=== PATIENT | female | born 1955 | race African-American/Black ===

== ENCOUNTER 2022-04-17 10:14 | Emergency (ER) | payer OTHER ==
--- OUTSIDE RECORDS SUMMARY | 2022-04-17 10:22 | XMS REPORT | Continuity of Care Document ---
:1955 Author Organization [facility] [place] t Address [address] [place] [address] Care Team Providers Name Role Phone VAL LEWIS Primary Care Physician Unavailable Yazmin Cates RN Attending Clinician Unavailable JE GUERRERO Attending Clinician Unavailable Derek Michaels DO Attending Clinician Rui Torre MD Attending Clinician Je Guerrero MD Attending Clinician Doctor Unassigned, [place] Attending Clinician Unavailable TIN MCCLAIN Attending Clinician Unavailable Tin Zendejas Attending Clinician Broderick Perez MD Attending Clinician BRODERICK PEREZ Attending Clinician Unavailable Megan Hyde NP Attending Clinician Nu More Attending Clinician Unknown, Attending Attending Clinician Unavailable UNKNOWN, ATTENDING Attending Clinician Unavailable JE GUERRERO Admitting Clinician Unavailable Je Guerrero MD Admitting Clinician BRODERICK PEREZ Admitting Clinician Unavailable Payers Payer Name Policy Type Policy Number Effective Date Expiration Date George nath [employer] MEDICARE ADV [id number] 2016 00:00:00 Problems Condition Condition Condition Status Onset Resolution Last Treating Co mments Source Name Details Category Date Date Treatment Clinician Date Essential Essential Disease Active Uni vers hypertensi hypertensi 6-23 it y of on on 00:: [place] [facility] Dyslipidem Dyslipidem Disease Active U nivers ia ia 6-23 ity of 00:00: [place] [facility] Elevated Elevated Disease Active Unive rs brain brain 6- ity of nat[place] c peptide c peptide 00 [facility] (BNP) (BNP) Branch level level DORADO DORADO Disease Active Univers (dyspnea (dyspnea 11-20 ity of on on 00:00: [place] exertion) exertion) 00 [facility] Branch Hypotensio Hypotensio Disease Active U nivers n, n, 6- ity of unspecifie unspecifie 00:00: [place] d d 00 Medical hypotensio hypotensio Br anch n type n type Symptomati Symptomati Disease Active U nivers c c 6-22 ity of bradycardi bradycardi 00:[place]: [place] a a 00 [facility] [place] Obesity Obesity Disease Active Univers (BMI (BMI 7-02 ity of 30-39.9) 30-39.9) 00:00: [place] [facility] Branch Right hand Right hand Disease Active U nivers pain pain 3-08 ity of 00:00: [address] Allergies, Adverse Reactions, Alerts Allergy Allergy Status Severity Reaction(s) Onset Inactive Treating Comm ents Source Name Type Date Date Clinician NO KNOWN Drug Active Univers ALLERGIE Class ity of [facility] Social History Social Habit Start Date Stop Date Quantity Comments Source History of tobacco Smoker [facility] use [facility] Exposure to 2021-11-10 2021-11-20 Not sure [facility] SARS-CoV-2 (event) 00:00:00 02:02:00 Medica l Branch Alcohol intake 2021-11-19 2021-11-19 0 /d [facility] 00:00:00 00:00:00 Medical Branch Tobacco use and 2018-09-16 2018-09-16 Never used [facility] [place] exposure 00:00:00 00:00:00 Medical Branch Sex [birth year] [facility] y [facility] 00:00:00 00:00:00 Medical Branch Smoking Status Start Date Stop Date Source Former smoker 2018-09-16 00:00:00 2018-09-16 00:00:00 [facility] Medical Branch Medications Ordered Filled Start Stop Current Ordering Indication Dosage Frequency Signature Comments Components Source Medication Medication Date Date Medication? Clinician (SIG) Name Name ATORVASTATI No N CALCIUM 9-08 10MG TAB 00:00: 00 TAKE 1 No TABLET BY 9-08 MOUTH ONCE 00:00: DAILY 00 BABY Yes Take 1 Univers ASPIRIN 6-24 TAB-CAP/M2 ity of ORAL 11:47: by mouth [place] 20 daily. Medical Branch atorvastati Yes 10mg Take 10 mg Univers n (LIPITOR) 6-24 by mouth ity of 10 mg 11:47: every [place] tablet 20 morning. Medical Branch BABY Yes Take 1 Univers ASPIRIN 6-24 TAB-CAP/M2 ity of ORAL 11:47: by mouth [place] 20 daily. Medical Branch atorvastati Yes 10mg Take 10 mg Univers n (LIPITOR) 6-24 by mouth ity of 10 mg 11:47: every [place] tablet 20 morning. Medical Branch hydroCHLORO 2021- No 12.5mg Take 12.5 Univers thiazide 6-24 06-24 mg by ity of 12.5 mg 10:38: 00:00 mouth [place] capsule 38 :00 daily. Medical Branch clopidogreL Yes 75mg 75 mg, Univ ers (PLAVIX) 75 6-23 Oral, ity of mg tablet 14:00: DAILY, [place] 75 mg 00 First dose Medical on [facility] 11/20/21 at 0900, Until Discontinu ed, Routine aspirin EC Yes 81mg 81 mg, Unive rs tablet 81 6-23 Oral, ity of mg 14:00: DAILY, [place] 00 First dose Medical on [facility] 11/20/21 at 0900, Until Discontinu ed atorvastati Yes 10mg 10 mg, Univ ers n (LIPITOR) 11-20 Oral, QAM, it y of tablet 10 14:00: [place] dose [place] mg 00 on [facility] Medical 11/20/21 at Branch 0900, Until Discontinu ed, Routine KCL 2021-2021- No 40meq 40 mEq, Univers (KLOR-CON 11-20 Oral, ity of M20) tablet 13:45: 13:27 ONCE, 1 [place] 40 mEq 00 :00 dose, On Medical [facility] 11/20/21 at 0845, Routine potassium 2021- No 10meq 10 mEq, IV Univers chloride in 11-20 Piggyback, i ty of water 10 13:00: 16:00 Q1H, 2 [place] mEq/100 mL 00 :00 doses, Medical RTU 10 mEq First dose Bra nch on [facility] 11/20/21 at 0800, Last dose on [facility] 11/20/21 at 0900, Administer over 60 Minutes, 100 mL Sliding 2021- Yes Subcutaneo Univ ers Scale 11-19 us, TID ity of Insulin - 22:00: MEALS+HS, [place] as Lispro 00 First dose Medical (HumaLOG) + on Wed [facility] 11/19/21 at Testing 1700, Until Discontinu ed, Routine enoxaparin Yes 40mg 40 mg, Unive rs (LOVENOX) 11-19 Subcutaneo ity of injection 22:00: [place], DAILY, [place] 40 mg 00 First dose Medical on Wed [facility] 11/19/21 at 1700, Until Discontinu ed, Routine glucagon Yes 1mg 1 mg, Univers (GLUCAGEN 11-19 Intramuscu ity of DIAGNOSTIC 21:00: lar, PRN, [place] KIT) 23 Starting Medical injection 1 on Wed [facility] mg 11/19/21 at 1600, Until Discontinu ed, WADE, Blood Glucose < or = 70 mg/dL and patient is unable to swallow or has mental changes. ondansetron 0 Yes 4mg 4 mg, Slow Univers (ZOFRAN 11-19 IV Push, ity of (PF)) 21:00: Q6HPRN, [place] injection 4 08 Starting Medi davis mg on Wed Branch 11/19/21 at 1600, Until Discontinu ed, Routine, Nausea and Vomiting (N/V) acetaminoph Yes 650mg 650 mg, Un adrian en 11-19 Oral, ity of (TYLENOL) 21:00: Q6HPRN, [place] tablet 650 00 Starting Medic al mg on Wed11/19/21 at 1600, Until Discontinu ed, Routine, Pain (scale 1-3) cefTRIAXone 2021- No 1000mg 1,000 mg, Univers (ROCEPHIN) 11-1923 Slow IV ity o f injection 17:45: 20:01 Push, Q24H [place] 1,000 mg 00 :25 ABX, First Medic al dose on Branch Wed11/19/21 at 1245, Until Discontinu ed, WADE<br&gt ;Reason for Anti-Infec tive: Empiric Therapy for Suspected Infection< br>Empiric Therapy Site: Urine
D uration of therapy: 72 hours NaCl 0.9% 2021- No 30mL/kg at 999 Un adrian (NS) bolus 11-19 mL/hr, ity of infusion 17:45: 20:00 2,313 [place] 2,313 mL 00 :00 (30 mL/kg Medica l ?77.1 kg), Branch IV Piggyback, ONCE, 1 dose, On Wed11/19/21 at 1245, STAT atorvastati 0 No 1mg n 10 mg 10-29 tablet 00:00: 00 Plavix 75 2021-0 No 1mg mg tablet 10-29 00:00: 00 losartan 2021-0 No 1mg 100 mg 10-29 tablet 00:00: 00 amlodipine 0 No 1mg 5 mg tablet 10-29 00:00: 00 Flonase 0 No 1mcg/ac Allergy 10-29 tuation Relief 50 00:00: mcg/actuati 00 on nasal spray,suspe nsion Dose 0 No Unknown 5-31 00:00: 00 Dose 2021-0 No Unknown 5-24 00:00: 00 Dose 2021-0 No Unknown 5-20 00:00: 00 Dose 2021-0 No Unknown 5-16 00:00: 00 Dose 2021-0 No Unknown 5-16 00:00: 00 atorvastati 2021-0 No 1mg n 10 mg 2-03 tablet 00:00: 00 amlodipine 2020-1 No 1mg 5 mg tablet 0-27 00:00: 00 Plavix 75 2020-1 No 1mg mg tablet 0-27 00:00: 00 losartan 2020-1 No 1mg 100 mg 0-18 tablet 00:00: 00 amlodipine 2020-1 No 1mg 5 mg tablet 0-18 00:00: 00 Plavix 75 2020-1 No 1mg mg tablet 0-18 00:00: 00 Flonase 2020-1 No 1mcg/ac Allergy 0-18 tuation Relief 50 00:00: mcg/actuati 00 on nasal spray,suspe nsion losartan 2020-0 No 1mg 100 mg 9-30 tablet 00:00: 00 amlodipine 2020-0 No 1mg 5 mg tablet 9-16 00:00: 00 Plavix 75 2020-0 No 1mg mg tablet 9-13 00:00: 00 latanoprost 2020-0 No 1% 0.005 % eye 6-30 drops 00:00: 00 hydrochloro 2020-0 No 1mg thiazide 6-30 12.5 mg 00:00: tablet 00 atenolol 25 2020-0 No 1mg mg tablet 6-30 00:00: 00 atorvastati 2020-0 No 1mg n 10 mg 6-30 tablet 00:00: 00 atorvastati 2020-0 No 1mg n 10 mg 4-22 tablet 00:00: 00 amlodipine 2020-0 No 1mg 5 mg tablet 2-18 00:00: 00 Plavix 75 2020-0 No 1mg mg tablet 2-18 00:00: 00 losartan 2020-0 No 1mg 100 mg 2-18 tablet 00:00: 00 famotidine 2020-0 No 1mg 20 mg 2-18 tablet 00:00: 00 acetaminoph 2020-0 1- No 650mg 650 mg, U nivers en 07-11 Oral, ity of (TYLENOL) 21:30: 20:21 ONCE, 1 [place] tablet 650 00 :00 dose, [place] Medi davis mg 07/11/20 at Branch 1530, WADE etodolac Yes [id number] 200mg Take 1 Univers 200 mg 2-11 [id number] capsule by ity o f capsule 00:00: mouth [place] 00 every 8 Medical (eight) Branch hours as needed for Pain. etodolac Yes [id number] 200mg Take 1 Univers 200 mg 2-11 [id number] capsule by ity o f capsule 00:00: mouth [place] 00 every 8 Medical (eight) Branch hours as needed for Pain. etodolac Yes [id number] 200mg Take 1 Univers 200 mg 2-11 [id number] capsule by ity o f capsule 00:00: mouth [place] 00 every 8 Medical (eight) Branch hours as needed for Pain. etodolac Yes [id number] 200mg Take 1 Univers 200 mg 2-11 [id number] capsule by ity o f capsule 00:00: mouth [place] 00 every 8 Medical (eight) Branch hours as needed for Pain. etodolac Yes [id number] 200mg Take 1 Univers 200 mg 2-11 [id number] capsule by ity o f capsule 00:00: mouth [place] 00 every 8 Medical (eight) Branch hours as needed for Pain. etodolac Yes [id number] 200mg Take 1 Univers 200 mg 2-11 [id number] capsule by ity o f capsule 00:00: mouth [place] 00 every 8 Medical (eight) Branch hours as needed for Pain. etodolac Yes [id number] 200mg Take 1 Univers 200 mg 2-11 [id number] capsule by ity o f capsule 00:00: mouth [place] 00 every 8 Medical (eight) Branch hours as needed for Pain. etodolac Yes [id number] 200mg Take 1 Univers 200 mg 2-11 [id number] capsule by ity o f capsule 00:00: mouth [place] 00 every 8 Medical (eight) Branch hours as needed for Pain. etodolac Yes [id number] 200mg Take 1 Univers 200 mg 2-11 [id number] capsule by ity o f capsule 00:00: mouth [place] 00 every 8 Medical (eight) Branch hours as needed for Pain. etodolac Yes [id number] 200mg Take 1 Univers 200 mg 2-11 [id number] capsule by ity o f capsule 00:00: mouth [place] 00 every 8 Medical (eight) Branch hours as needed for Pain. etodolac Yes [id number] 200mg Take 1 Univers 200 mg 2-11 [id number] capsule by ity o f capsule 00:00: mouth [place] 00 every 8 Medical (eight) Branch hours as needed for Pain. etodolac Yes [id number] 200mg Take 1 Univers 200 mg 2-11 [id number] capsule by ity o f capsule 00:00: mouth [place] 00 every 8 Medical (eight) Branch hours as needed for Pain. etodolac Yes [id number] 200mg Take 1 Univers 200 mg 2-11 [id number] capsule by ity o f capsule 00:00: mouth [place] 00 every 8 Medical (eight) Branch hours as needed for Pain. etodolac Yes [id number] 200mg Take 1 Univers 200 mg 2-11 [id number] capsule by ity o f capsule 00:00: mouth [place] 00 every 8 Medical (eight) Branch hours as needed for Pain. etodolac Yes [id number] 200mg Take 1 Univers 200 mg 2-11 [id number] capsule by ity o f capsule 00:00: mouth [place] 00 every 8 Medical (eight) Branch hours as needed for Pain. etodolac Yes [id number] 200mg Take 1 Univers 200 mg 2-11 [id number] capsule by ity o f capsule 00:00: mouth [place] 00 every 8 Medical (eight) Branch hours as needed for Pain. etodolac 2021- No [id number] 200mg Take 1 Univers 200 mg 2-11 -24 [id number] capsule by ity of capsule 00:00: 00:00 mouth [place] 00 :00 every 8 Medical (eight) Branch hours as needed for Pain. losartan No 1mg 100 mg 2-03 tablet 00:00: 00 meloxicam 2019-05 No 1mg 15 mg 2-23 tablet 00:00: 00 Plavix 75 2019-05 No 1mg mg tablet 2-23 00:00: 00 amlodipine 2019-05 No 1mg 5 mg tablet 2-23 00:00: 00 losartan 2019-05 No 1mg 100 mg 1-10 tablet 00:00: 00 meloxicam 2019-05 No 1mg 15 mg 1-10 tablet 00:00: 00 amlodipine 2020-1 No 1mg 5 mg tablet 1-10 00:00: 00 famotidine 2020-1 No 1mg 20 mg 1-10 tablet 00:00: 00 Plavix 75 2020-1 No 1mg mg tablet 0-09 00:00: 00 meloxicam 2020-0 No 1mg 15 mg 9-29 tablet 00:00: 00 famotidine 2020-0 No 1mg 20 mg 9-29 tablet 00:00: 00 acetaminoph 2020-0 2020- No 650mg 650 mg, U nivers en 02-24 Oral, ity of (TYLENOL) 00:15: 00:17 ONCE, 1 [place] tablet 650 00 :00 dose, Sat Medi dav[place] mg 02/24/20 at Branch 1915, WADE atorvastati 2020-0 No 1mg n 10 mg 6-16 tablet 00:00: 00 amlodipine 2020-0 No 1mg 5 mg tablet 6-16 00:00: 00 losartan 2020-0 No 1mg 100 mg 6-15 tablet 00:00: 00 Plavix 75 2020-0 No 1mg mg tablet 6-15 00:00: 00 atorvastati 2020-0 No 1mg n 10 mg 6-15 tablet 00:00: 00 amlodipine 2020-0 No 1mg 5 mg tablet 6-15 00:00: 00 atenolol 50 2020-0 No 1mg mg tablet 6-15 00:00: 00 Vitamin D3 2020-0 No 1(5,000 125 mcg 6-15 unit) (5,000 00:00: unit) 00 tablet losartan 2020-0 No 1mg 100 mg 6-04 tablet 00:00: 00 amlodipine 2020-0 No 1mg 5 mg tablet 4-15 00:00: 00 aspirin 81 2020-0 No 1mg mg 4-15 tablet,samson 00:00: yed release 00 atenolol 50 2020-0 No 1mg mg tablet 4-15 00:00: 00 atorvastati 2020-0 No 1mg n 10 mg 4-15 tablet 00:00: 00 losartan 2020-0 No 1mg 100 mg 4-15 tablet 00:00: 00 Plavix 75 2020-0 No 1mg mg tablet 4-15 00:00: 00 Vitamin D3 2020-0 No 1(5,000 125 mcg 4-15 unit) (5,000 00:00: unit) 00 tablet BABY 2019-0 Yes Take 1 Univers ASPIRIN 4-19 TAB-CAP/M2 ity of ORAL 18:15: by mouth [place] 52 daily. Medical Branch BABY 2019-0 Yes Take 1 Univers ASPIRIN 4-19 TAB-CAP/M2 ity of ORAL 18:15: by mouth [place] 52 daily. Medical Branch BABY 2019-0 Yes Take 1 Univers ASPIRIN 4-19 TAB-CAP/M2 ity of ORAL 18:15: by mouth [place] 52 daily. Medical Branch BABY 2019-0 Yes Take 1 Univers ASPIRIN 4-19 TAB-CAP/M2 ity of ORAL 18:15: by mouth [place] 52 daily. Medical Branch BABY 2019-0 Yes Take 1 Univers ASPIRIN 4-19 TAB-CAP/M2 ity of ORAL 18:15: by mouth [place] 52 daily. Medical Branch BABY 2019-0 Yes Take 1 Univers ASPIRIN 4-19 TAB-CAP/M2 ity of ORAL 18:15: by mouth [place] 52 daily. Medical Branch BABY 2019-0 Yes Take 1 Univers ASPIRIN 4-19 TAB-CAP/M2 ity of ORAL 18:15: by mouth [place] 52 daily. Medical Branch BABY 2019-0 Yes Take 1 Univers ASPIRIN 4-19 TAB-CAP/M2 ity of ORAL 18:15: by mouth [place] 52 daily. Medical Branch BABY 2019-0 Yes Take 1 Univers ASPIRIN 4-19 TAB-CAP/M2 ity of ORAL 18:15: by mouth [place] 52 daily. Medical Branch BABY 2019-0 Yes Take 1 Univers ASPIRIN 4-19 TAB-CAP/M2 ity of ORAL 18:15: by mouth [place] 52 daily. Medical Branch BABY 2019-0 Yes Take 1 Univers ASPIRIN 4-19 TAB-CAP/M2 ity of ORAL 18:15: by mouth [place] 52 daily. Medical Branch BABY 2019-0 Yes Take 1 Univers ASPIRIN 4-19 TAB-CAP/M2 ity of ORAL 18:15: by mouth [place] 52 daily. Medical Branch BABY 2019-0 Yes Take 1 Univers ASPIRIN 4-19 TAB-CAP/M2 ity of ORAL 18:15: by mouth [place] 52 daily. Medical Branch BABY 2019-0 Yes Take 1 Univers ASPIRIN 4-19 TAB-CAP/M2 ity of ORAL 18:15: by mouth [place] 52 daily. Medical Branch BABY 2019-0 Yes Take 1 Univers ASPIRIN 4-19 TAB-CAP/M2 ity of ORAL 18:15: by mouth [place] 52 daily. Medical Branch BABY 2019-0 Yes Take 1 Univers ASPIRIN 4-19 TAB-CAP/M2 ity of ORAL 18:15: by mouth [place] 52 daily. Medical Branch BABY 2019-0 Yes Take 1 Univers ASPIRIN 4-19 TAB-CAP/M2 ity of ORAL 18:15: by mouth [place] 52 daily. Medical Branch BABY 2019-0 Yes Take 1 Univers ASPIRIN 4-19 TAB-CAP/M2 ity of ORAL 18:15: by mouth [place] 52 daily. Medical Branch BABY [id number] Yes Take 1 Univers ASPIRIN 4-19 TAB-CAP/M2 ity of ORAL 18:15: by mouth [place] 52 daily. Medical Branch BABY 2019 Yes Take 1 Univers ASPIRIN 4-19 TAB-CAP/M2 ity of ORAL 18:15: by mouth [place] 52 daily. Medical Branch BABY Yes Take 1 Univers ASPIRIN 4-19 TAB-CAP/M2 ity of ORAL 18:15: by mouth [place] 52 daily. Medical Branch BABY 2019 Yes Take 1 Univers ASPIRIN 4-19 TAB-CAP/M2 ity of ORAL 18:15: by mouth [place] 52 daily. Medical Branch BABY [id number] Yes Take 1 Univers ASPIRIN 4-19 TAB-CAP/M2 ity of ORAL 13:15: by mouth [place] 52 daily. Medical Branch clopidogrel 2019-0 Yes Univer s 75 mg 4-01 ity of tablet 00:00: [facility] Branch clopidogrel 2019-0 Yes Univer s 75 mg 4-01 ity of tablet 00:00: [address] Branch clopidogrel 2019-0 Yes Univer s 75 mg 4-01 ity of tablet 00:00: [place] [facility] clopidogrel 2019-0 Yes Univer s 75 mg 4-01 ity of tablet 00:00: [place] [facility] clopidogrel 2019-0 Yes Univer s 75 mg 4-01 ity of tablet 00:00: [place] [facility] Branch clopidogrel 2019-0 Yes Univer s 75 mg 4-01 ity of tablet 00:00: Medical Branch clopidogrel 2019-0 Yes Univer s 75 mg 4-01 ity of tablet 00:00: [facility] clopidogrel 2019-0 Yes Univer s 75 mg 4-01 ity of tablet 00:00: [place] [facility] clopidogrel 2019-0 Yes Univer s 75 mg 4-01 ity of tablet 00:00: [place] 00 Medical Branch clopidogrel 2019-0 Yes Univer s 75 mg 4-01 ity of tablet 00:00: [place] [address] Medical Branch clopidogrel 2019-0 Yes Univer s 75 mg 4-01 ity of tablet 00:00: [place] [facility] clopidogrel 2019-0 Yes Univer s 75 mg 4-01 ity of tablet 00:00: [place] [address] Medical Branch clopidogrel 2019-0 Yes Univer s 75 mg 4-01 ity of tablet 00:00: [place] [address] Medical Branch clopidogrel 2019-0 Yes Univer s 75 mg 4-01 ity of tablet 00:00: [place] [address] Medical Branch clopidogrel 2019-0 Yes Univer s 75 mg 4-01 ity of tablet 00:00: [place] [address] Medical Branch clopidogrel 2019-0 Yes Univer s 75 mg 4-01 ity of tablet 00:00: [place] [address] Medical Branch clopidogrel 2019-0 Yes Univer s 75 mg 4-01 ity of tablet 00:00: [place] [address] Medical Branch clopidogrel 2019-0 Yes Univer s 75 mg 4-01 ity of tablet 00:00: [place] [address] Medical Branch clopidogrel 2019-0 Yes Univer s 75 mg 4-01 ity of tablet 00:00: [place] [address] Medical Branch clopidogrel 2019-0 Yes Univer s 75 mg 4-01 ity of tablet 00:00: [place] [address] Medical Branch clopidogrel 2019-0 Yes Univer s 75 mg 4-01 ity of tablet 00:00: [place] [address] Medical Branch clopidogrel 2019-0 Yes Univer s 75 mg 4-01 ity of tablet 00:00: [place] [address] Medical Branch clopidogrel 2019-0 Yes Univer s 75 mg 4-01 ity of tablet 00:00: [place] [address] Medical Branch clopidogrel 2019-0 Yes Univer s 75 mg 4-01 ity of tablet 00:00: [place] [address] Medical Branch clopidogrel 2019-0 Yes Univer s 75 mg 4-01 ity of tablet 00:00: [place] [address] Medical Branch meloxicam 2019-0 Yes Univers 15 mg 3-21 ity of tablet 00:00: [place] [address] Medical Branch meloxicam 2019-0 Yes Univers 15 mg 3-21 ity of tablet 00:00: [place] [address] Medical Branch meloxicam 2019-0 Yes Univers 15 mg 3-21 ity of tablet 00:00: [place] [address] Medical Branch meloxicam 2019-0 Yes Univers 15 mg 3-21 ity of tablet 00:00: [place] [address] Medical Branch meloxicam 2019-0 Yes Univers 15 mg 3-21 ity of tablet 00:00: [place] [facility] meloxicam 2019-0 Yes Univers 15 mg 3-21 ity of tablet 00:00: [place] [facility] meloxicam 2019-0 Yes Univers 15 mg 3-21 ity of tablet 00:00: [place] [address] Medical Branch meloxicam 2019-0 Yes Univers 15 mg 3-21 ity of tablet 00:00: [place] [facility] meloxicam 2019-0 Yes Univers 15 mg 3-21 ity of tablet 00:00: [place] [facility] meloxicam 2019-0 Yes Univers 15 mg 3-21 ity of tablet 00:00: [place] [address] Medical Branch meloxicam 2019-0 Yes Univers 15 mg 3-21 ity of tablet 00:00: [place] [facility] meloxicam 2019-0 Yes Univers 15 mg 3-21 ity of tablet 00:00: [place] [address] Medical Branch meloxicam 2019-0 Yes Univers 15 mg 3-21 ity of tablet 00:00: [place] [address] Medical Branch meloxicam 2019-0 Yes Univers 15 mg 3-21 ity of tablet 00:00: [place] [facility] meloxicam 2019-0 Yes Univers 15 mg 3-21 ity of tablet 00:00: [place] [address] Medical Branch meloxicam 2019-0 Yes Univers 15 mg 3-21 ity of tablet 00:00: [place] [facility] meloxicam 2019-0 Yes Univers 15 mg 3-21 ity of tablet 00:00: [place] [address] Medical Branch meloxicam 2019-0 Yes Univers 15 mg 3-21 ity of tablet 00:00: [place] [facility] meloxicam 2019-0 Yes Univers 15 mg 3-21 ity of tablet 00:00: [place] [facility] meloxicam 2019-0 Yes Univers 15 mg 3-21 ity of tablet 00:00: [place] [address] Medical Branch meloxicam 2019-0 Yes Univers 15 mg 3-21 ity of tablet 00:00: [place] [facility] meloxicam 2019-0 Yes Univers 15 mg 3-21 ity of tablet 00:00: [place] [address] Medical Branch meloxicam 2019-0 Yes Univers 15 mg 3-21 ity of tablet 00:00: [place] [address] Medical Branch meloxicam 2019-0 2021- No Univers 15 mg 3-21 06-24 ity of tablet 00:00: 00:00 [place] 00 :00 Medical Branch traMADOL 50 2018-0 Yes Univer s mg tablet 3-27 ity of 00:00: [place] 00 Medical Branch traMADOL 50 2018-0 Yes Univer s mg tablet 3-27 ity of 00:00: [place] 00 Medical Branch traMADOL 50 2018-0 Yes Univer s mg tablet 3-27 ity of 00:00: [place] 00 Medical Branch traMADOL 50 2018-0 Yes Univer s mg tablet 3-27 ity of 00:00: [place] 00 Medical Branch traMADOL 50 2018-0 Yes Univer s mg tablet 3-27 ity of 00:00: [place] 00 Medical Branch traMADOL 50 2018-0 Yes Univer s mg tablet 3-27 ity of 00:00: [place] 00 Medical Branch traMADOL 50 2018-0 Yes Univer s mg tablet 3-27 ity of 00:00: [place] 00 Medical Branch traMADOL 50 2018-0 Yes Univer s mg tablet 3-27 ity of 00:00: [place] 00 Medical Branch traMADOL 50 2018-0 Yes Univer s mg tablet 3-27 ity of 00:00: [place] 00 Medical Branch traMADOL 50 2018-0 Yes Univer s mg tablet 3-27 ity of 00:00: [place] 00 Medical Branch traMADOL 50 2018-0 Yes Univer s mg tablet 3-27 ity of 00:00: [place] 00 Medical Branch traMADOL 50 2018-0 Yes Univer s mg tablet 3-27 ity of 00:00: [place] 00 Medical Branch traMADOL 50 2018-0 Yes Univer s mg tablet 3-27 ity of 00:00: [place] 00 Medical Branch traMADOL 50 2018-0 Yes Univer s mg tablet 3-27 ity of 00:00: [place] 00 Medical Branch traMADOL 50 2018-0 Yes Univer s mg tablet 3-27 ity of 00:00: [place] 00 Medical Branch traMADOL 50 2018-0 Yes Univer s mg tablet 3-27 ity of 00:00: [place] 00 Medical Branch traMADOL 50 2018-0 Yes Univer s mg tablet 3-27 ity of 00:00: [place] 00 Medical Branch traMADOL 50 2018-0 Yes Univer s mg tablet 3-27 ity of 00:00: [place] 00 Medical Branch traMADOL 50 2018-0 Yes Univer s mg tablet 3-27 ity of 00:00: [place] 00 Medical Branch traMADOL 50 2018-0 Yes Univer s mg tablet 08-24 ity of 00:00: [place] 00 Medical Branch traMADOL 50 2018-0 Yes Univer s mg tablet 08-24 ity of 00:00: [place] 00 Medical Branch traMADOL 50 2018-0 Yes Univer s mg tablet 08-24 ity of 00:00: [place] [address] Medical Branch traMADOL 50 2018-0 Yes Univer s mg tablet 08-24 ity of 00:00: [place] [address] Medical Branch traMADOL 50 2018-0 2- No Unive rs mg tablet 08-24 ity of 00:00: 00:00 [place] 00 :00 Medical Branch diclofenac 2018-0 Yes Univers 75 mg EC 2-08 ity of tablet 00:00: [place] [address] Medical Branch diclofenac 2018-0 Yes Univers 75 mg EC 2-08 ity of tablet 00:00: [place] [address] Medical Branch diclofenac 2018-0 Yes Univers 75 mg EC 2-08 ity of tablet 00:00: [place] [address] Medical Branch diclofenac 2018-0 Yes Univers 75 mg EC 2-08 ity of tablet 00:00: [place] [address] Medical Branch diclofenac 2018-0 Yes Univers 75 mg EC 2-08 ity of tablet 00:00: [place] [address] Medical Branch diclofenac 2018-0 Yes Univers 75 mg EC 2-08 ity of tablet 00:00: [place] [address] Medical Branch diclofenac 2018-0 Yes Univers 75 mg EC 2-08 ity of tablet 00:00: [place] [address] Medical Branch diclofenac 2018-0 Yes Univers 75 mg EC 2-08 ity of tablet 00:00: [place] [address] Medical Branch diclofenac 2018-0 Yes Univers 75 mg EC 2-08 ity of tablet 00:00: [place] 00 Medical Branch diclofenac 2018-0 Yes Univers 75 mg EC 2-08 ity of tablet 00:00: [place] [address] Medical Branch diclofenac 2018-0 Yes Univers 75 mg EC 2-08 ity of tablet 00:00: [place] [address] Medical Branch diclofenac 2018-0 Yes Univers 75 mg EC 2-08 ity of tablet 00:00: [place] [address] Medical Branch diclofenac 2018-0 Yes Univers 75 mg EC 2-08 ity of tablet 00:00: [place] [address] Medical Branch diclofenac 2018-0 Yes Univers 75 mg EC 2-08 ity of tablet 00:00: [place] [address] [facility] diclofenac 2018-0 Yes Univers 75 mg EC 2-08 ity of tablet 00:00: [place] 00 [facility] diclofenac 2018-0 Yes Univers 75 mg EC 2-08 ity of tablet 00:00: [place] 00 [facility] diclofenac 2018-0 Yes Univers 75 mg EC 2-08 ity of tablet 00:00: [place] 00 [facility] diclofenac 2018-0 Yes Univers 75 mg EC 2-08 ity of tablet 00:00: [place] 00 [facility] diclofenac 2018-0 Yes Univers 75 mg EC 2-08 ity of tablet 00:00: [place] [facility] diclofenac 2018-0 Yes Univers 75 mg EC 2-08 ity of tablet 00:00: [place] [facility] diclofenac 2018-0 Yes Univers 75 mg EC 2-08 ity of tablet 00:00: [place] [facility] diclofenac 2018-0 Yes Univers 75 mg EC 2-08 ity of tablet 00:00: [place] [facility] diclofenac 2018-0 Yes Univers 75 mg EC 2-08 ity of tablet 00:00: [place] [facility] diclofenac 2018-0 2022- No Univer s 75 mg EC 2-08 06-24 ity of tablet 00:00: 00:00 [place] 00 :00 [facility] methylPREDN 2018-0 Yes 84mg Take 21 Uni vers ISolone 1-12 tablets by ity of (MEDROL, 00:00: mouth [place] MERLE,) 4 mg 00 SEE-INSTRU Med ical tablets CTIONS. Branch follow package directions methylPREDN 2018-0 Yes 84mg Take 21 Uni vers ISolone 1-12 tablets by ity of (MEDROL, 00:00: mouth [place] MERLE,) 4 mg 00 SEE-INSTRU Med ical tablets CTIONS. Branch follow package directions methylPREDN 2018-0 Yes 84mg Take 21 Uni vers ISolone 1-12 tablets by ity of (MEDROL, 00:00: mouth [place] MERLE,) 4 mg 00 SEE-INSTRU Med ical tablets CTIONS. Branch follow package directions methylPREDN 2018-0 Yes 84mg Take 21 Uni vers ISolone 1-12 tablets by ity of (MEDROL, 00:00: mouth [place] MERLE,) 4 mg 00 SEE-INSTRU Med ical tablets CTIONS. Branch follow package directions methylPREDN 2018-0 Yes 84mg Take 21 Uni vers ISolone 1-12 tablets by ity of (MEDROL, 00:00: mouth [place] MERLE,) 4 mg 00 SEE-INSTRU Med ical tablets CTIONS. Branch follow package directions methylPREDN 2018-0 Yes 84mg Take 21 Uni vers ISolone 1-12 tablets by ity of (MEDROL, 00:00: mouth [place] MERLE,) 4 mg 00 SEE-INSTRU Med ical tablets CTIONS. Branch follow package directions methylPREDN 2018-0 Yes 84mg Take 21 Uni vers ISolone 1-12 tablets by ity of (MEDROL, 00:00: mouth [place] MERLE,) 4 mg 00 SEE-INSTRU Med ical tablets CTIONS. Branch follow package directions methylPREDN 2018-0 Yes 84mg Take 21 Uni vers ISolone 1-12 tablets by ity of (MEDROL, 00:00: mouth [place] MERLE,) 4 mg 00 SEE-INSTRU Med ical tablets CTIONS. Branch follow package directions methylPREDN 2018-0 Yes 84mg Take 21 Uni vers ISolone 1-12 tablets by ity of (MEDROL, 00:00: mouth [place] MERLE,) 4 mg 00 SEE-INSTRU Med ical tablets CTIONS. Branch follow package directions methylPREDN 2018-0 Yes 84mg Take 21 Uni vers ISolone 1-12 tablets by ity of (MEDROL, 00:00: mouth [place] MERLE,) 4 mg 00 SEE-INSTRU Med ical tablets CTIONS. Branch follow package directions methylPREDN 2018-0 Yes 84mg Take 21 Uni vers ISolone 1-12 tablets by ity of (MEDROL, 00:00: mouth [place] MERLE,) 4 mg 00 SEE-INSTRU Med ical tablets CTIONS. Branch follow package directions methylPREDN 2018-0 Yes 84mg Take 21 Uni vers ISolone 1-12 tablets by ity of (MEDROL, 00:00: mouth [place] MERLE,) 4 mg 00 SEE-INSTRU Med ical tablets CTIONS. Branch follow package directions methylPREDN 2018-0 Yes 84mg Take 21 Uni vers ISolone 1-12 tablets by ity of (MEDROL, 00:00: mouth [place] MERLE,) 4 mg 00 SEE-INSTRU Med ical tablets CTIONS. Branch follow package directions methylPREDN 2018-0 Yes 84mg Take 21 Uni vers ISolone 1-12 tablets by ity of (MEDROL, 00:00: mouth [place] MERLE,) 4 mg 00 SEE-INSTRU Med ical tablets CTIONS. Branch follow package directions methylPREDN 2018-0 Yes 84mg Take 21 Uni vers ISolone 1-12 tablets by ity of (MEDROL, 00:00: mouth [place] MERLE,) 4 mg 00 SEE-INSTRU Med ical tablets CTIONS. Branch follow package directions methylPREDN 2018-0 Yes 84mg Take 21 Uni vers ISolone 1-12 tablets by ity of (MEDROL, 00:00: mouth [place] MERLE,) 4 mg 00 SEE-INSTRU Med ical tablets CTIONS. Branch follow package directions methylPREDN 2018-0 Yes 84mg Take 21 Uni vers ISolone 1-12 tablets by ity of (MEDROL, 00:00: mouth [place] MERLE,) 4 mg 00 SEE-INSTRU Med ical tablets CTIONS. Branch follow package directions methylPREDN 2018-0 Yes 84mg Take 21 Uni vers ISolone 1-12 tablets by ity of (MEDROL, 00:00: mouth [place] MERLE,) 4 mg 00 SEE-INSTRU Med ical tablets CTIONS. Branch follow package directions methylPREDN 2018-0 Yes 84mg Take 21 Uni vers ISolone 1-12 tablets by ity of (MEDROL, 00:00: mouth [place] MERLE,) 4 mg 00 SEE-INSTRU Med ical tablets CTIONS. Branch follow package directions methylPREDN 2018-0 Yes 84mg Take 21 Uni vers ISolone 1-12 tablets by ity of (MEDROL, 00:00: mouth [place] MERLE,) 4 mg 00 SEE-INSTRU Med ical tablets CTIONS. Branch follow package directions methylPREDN 2018-0 Yes 84mg Take 21 Uni vers ISolone 1-12 tablets by ity of (MEDROL, 00:00: mouth [place] MERLE,) 4 mg 00 SEE-INSTRU Med ical tablets CTIONS. Branch follow package directions methylPREDN 2018-0 Yes 84mg Take 21 Uni vers ISolone 1-12 tablets by ity of (MEDROL, 00:00: mouth [place] MERLE,) 4 mg 00 SEE-INSTRU Med ical tablets CTIONS. Branch follow package directions methylPREDN 2018-0 Yes 84mg Take 21 Uni vers ISolone 1-12 tablets by ity of (MEDROL, 00:00: mouth [place] MERLE,) 4 mg 00 SEE-INSTRU Med ical tablets CTIONS. Branch follow package directions methylPREDN 2018-0 2022- No 84mg Take 21 Un adrian ISolone 1 06-24 tablets by ity o f (MEDROL, 00:00: 00:00 mouth [place] MERLE,) 4 mg 00 :00 SEE-INSTRU Med ical tablets CTIONS. Branch follow package directions baclofen 10 Yes Univer s mg tablet 4-03 ity of 00:00: [place] [facility] baclofen 10 2016-0 Yes Univer s mg tablet - ity of 00:00: [place] [facility] baclofen 10 Yes Univer s mg tablet 4- ity of 00:00: [place] [facility] baclofen 10 Yes Univer s mg tablet 4- ity of 00:00: [place] [facility] baclofen 10 Yes Univer s mg tablet 4- ity of 00:00: [place] [facility] baclofen 10 Yes Univer s mg tablet - ity of 00:00: [place] [address] [facility] baclofen 10 0 Yes Univer s mg tablet 4- ity of 00:00: [place] [facility] baclofen 10 0 Yes Univer s mg tablet 4- ity of 00:00: [place] [facility] baclofen 10 0 Yes Univer s mg tablet - ity of 00:00: [place] [address] [facility] baclofen 10 0 Yes Univer s mg tablet - ity of 00:00: [place] [facility] baclofen 10 0 Yes Univer s mg tablet - ity of 00:00: [place] [address] [facility] baclofen 10 2016-0 Yes Univer s mg tablet 4- ity of 00:00: [place] [facility] baclofen 10 0 Yes Univer s mg tablet 4- ity of 00:00: [place] 00 [facility] baclofen 10 0 Yes Univer s mg tablet 4- ity of 00:00: [place] [address] [facility] baclofen 10 0 Yes Univer s mg tablet 4- ity of 00:00: [place] [facility] baclofen 10 0 Yes Univer s mg tablet 4-03 ity of 00:00: [place] [address] [facility] baclofen 10 2016-0 Yes Univer s mg tablet 4- ity of 00:00: [place] [facility] baclofen 10 0 Yes Univer s mg tablet 4-03 ity of 00:00: [place] [facility] baclofen 10 0 Yes Univer s mg tablet - ity of 00:00: [place] [facility] baclofen 10 2016-0 Yes Univer s mg tablet - ity of 00:00: [place] [facility] baclofen 10 2016-0 Yes Univer s mg tablet - ity of 00:00: [place] [facility] baclofen 10 2016-0 Yes Univer s mg tablet - ity of 00:00: [place] [facility] baclofen 10 0 Yes Univer s mg tablet - ity of 00:00: [place] [address] [facility] baclofen 10 0 2022- No Unive rs mg tablet 08-31 ity of 00:00: 00:00 [place] 00 :00 [facility] amLODIPine 2017-0 Yes Univers 5 mg tablet 3-10 ity of 00:00: [place] [address] [facility] atenolol 50 2017-0 Yes Univer s mg tablet 3-10 ity of 00:00: [place] [address] [facility] losartan 2017-0 Yes Univers 100 mg 3-10 ity of tablet 00:00: [place] [address] [facility] amLODIPine 2017-0 Yes Univers 5 mg tablet 3-10 ity of 00:00: [place] [address] [facility] atenolol 50 2017-0 Yes Univer s mg tablet 3-10 ity of 00:00: [place] [address] [facility] losartan 2017-0 Yes Univers 100 mg 3-10 ity of tablet 00:00: [place] [address] [facility] amLODIPine 2017-0 Yes Univers 5 mg tablet 3-10 ity of 00:00: [place] [address] [facility] atenolol 50 2017-0 Yes Univer s mg tablet 3-10 ity of 00:00: [place] [address] [facility] losartan 2017-0 Yes Univers 100 mg 3-10 ity of tablet 00:00: [place] [address] [facility] amLODIPine 2017-0 Yes Univers 5 mg tablet 3-10 ity of 00:00: [place] [address] [facility] atenolol 50 2017-0 Yes Univer s mg tablet 3-10 ity of 00:00: [place] [address] [facility] losartan 2017-0 Yes Univers 100 mg 3-10 ity of tablet 00:00: [place] [address] [facility] amLODIPine 2017-0 Yes Univers 5 mg tablet 3-10 ity of 00:00: [place] [address] [facility] atenolol 50 2017-0 Yes Univer s mg tablet 3-10 ity of 00:00: [place] [address] [facility] losartan 2017-0 Yes Univers 100 mg 3-10 ity of tablet 00:00: [place] [address] [facility] amLODIPine 2017-0 Yes Univers 5 mg tablet 3-10 ity of 00:00: [place] [address] [facility] atenolol 50 2017-0 Yes Univer s mg tablet 3-10 ity of 00:00: [place] [address] [facility] losartan 2017-0 Yes Univers 100 mg 3-10 ity of tablet 00:00: [place] [address] [facility] amLODIPine 2017-0 Yes Univers 5 mg tablet 3-10 ity of 00:00: [place] [address] [facility] atenolol 50 2017-0 Yes Univer s mg tablet 3-10 ity of 00:00: [place] [address] [facility] losartan 2017-0 Yes Univers 100 mg 3-10 ity of tablet 00:00: [place] [address] [facility] amLODIPine 2017-0 Yes Univers 5 mg tablet 3-10 ity of 00:00: [place] [address] [facility] atenolol 50 2017-0 Yes Univer s mg tablet 3-10 ity of 00:00: [place] [address] [facility] losartan 2017-0 Yes Univers 100 mg 3-10 ity of tablet 00:00: [place] [address] [facility] amLODIPine 2017-0 Yes Univers 5 mg tablet 3-10 ity of 00:00: [place] [address] [facility] atenolol 50 2017-0 Yes Univer s mg tablet 3-10 ity of 00:00: [place] [address] [facility] losartan 2017-0 Yes Univers 100 mg 3-10 ity of tablet 00:00: [place] [address] [facility] amLODIPine 2017-0 Yes Univers 5 mg tablet 3-10 ity of 00:00: [place] [address] [facility] atenolol 50 2017-0 Yes Univer s mg tablet 3-10 ity of 00:00: [place] [address] [facility] losartan 2017-0 Yes Univers 100 mg 3-10 ity of tablet 00:00: [place] [address] [facility] amLODIPine 2017-0 Yes Univers 5 mg tablet 3-10 ity of 00:00: [place] [address] [facility] atenolol 50 2017-0 Yes Univer s mg tablet 3-10 ity of 00:00: [place] [address] [facility] losartan 2017-0 Yes Univers 100 mg 3-10 ity of tablet 00:00: [place] [address] [facility] amLODIPine 2017-0 Yes Univers 5 mg tablet 3-10 ity of 00:00: [place] [address] [facility] atenolol 50 2017-0 Yes Univer s mg tablet 3-10 ity of 00:00: [place] [address] [facility] losartan 2017-0 Yes Univers 100 mg 3-10 ity of tablet 00:00: [place] [address] [facility] amLODIPine 2017-0 Yes Univers 5 mg tablet 3-10 ity of 00:00: [place] [address] [facility] atenolol 50 2017-0 Yes Univer s mg tablet 3-10 ity of 00:00: [place] [address] [facility] losartan 2017-0 Yes Univers 100 mg 3-10 ity of tablet 00:00: [place] [address] [facility] amLODIPine 2017-0 Yes Univers 5 mg tablet 3-10 ity of 00:00: [place] [address] [facility] atenolol 50 2017-0 Yes Univer s mg tablet 3-10 ity of 00:00: [place] [address] [facility] losartan 2017-0 Yes Univers 100 mg 3-10 ity of tablet 00:00: [place] [address] [facility] amLODIPine 2017-0 Yes Univers 5 mg tablet 3-10 ity of 00:00: [place] [address] [facility] atenolol 50 2017-0 Yes Univer s mg tablet 3-10 ity of 00:00: [place] [address] [facility] losartan 2017-0 Yes Univers 100 mg 3-10 ity of tablet 00:00: [place] [address] [facility] amLODIPine 2017-0 Yes Univers 5 mg tablet 3-10 ity of 00:00: [place] [address] [facility] atenolol 50 2017-0 Yes Univer s mg tablet 3-10 ity of 00:00: [place] [address] [facility] losartan 2017-0 Yes Univers 100 mg 3-10 ity of tablet 00:00: [place] [address] [facility] amLODIPine 2017-0 Yes Univers 5 mg tablet 3-10 ity of 00:00: [place] [address] [facility] atenolol 50 2017-0 Yes Univer s mg tablet 3-10 ity of 00:00: [place] [address] [facility] losartan 2017-0 Yes Univers 100 mg 3-10 ity of tablet 00:00: [place] [address] [facility] amLODIPine 2017-0 Yes Univers 5 mg tablet 3-10 ity of 00:00: [place] [address] [facility] atenolol 50 2017-0 Yes Univer s mg tablet 3-10 ity of 00:00: [place] [address] [facility] losartan 2017-0 Yes Univers 100 mg 3-10 ity of tablet 00:00: [place] [address] [facility] amLODIPine 2017-0 Yes Univers 5 mg tablet 3-10 ity of 00:00: [place] [address] [facility] atenolol 50 2017-0 Yes Univer s mg tablet 3-10 ity of 00:00: [place] [address] [facility] losartan 2017-0 Yes Univers 100 mg 3-10 ity of tablet 00:00: [place] [address] [facility] amLODIPine 2017-0 Yes Univers 5 mg tablet 3-10 ity of 00:00: [place] [address] [facility] atenolol 50 2017-0 Yes Univer s mg tablet 3-10 ity of 00:00: [place] [address] [facility] losartan 2017-0 Yes Univers 100 mg 3-10 ity of tablet 00:00: [place] [address] [facility] amLODIPine 2017-0 Yes Univers 5 mg tablet 3-10 ity of 00:00: [place] [address] [facility] atenolol 50 2017-0 Yes Univer s mg tablet 3-10 ity of 00:00: [place] [address] [facility] losartan 2017-0 Yes Univers 100 mg 3-10 ity of tablet 00:00: [place] [address] [facility] amLODIPine 2017-0 Yes Univers 5 mg tablet 3-10 ity of 00:00: [place] [address] [facility] atenolol 50 2017-0 Yes Univer s mg tablet 3-10 ity of 00:00: [place] [address] [facility] losartan 2017-0 Yes Univers 100 mg 3-10 ity of tablet 00:00: [place] [address] [facility] amLODIPine 2017-0 Yes Univers 5 mg tablet 3-10 ity of 00:00: [place] [address] [facility] atenolol 50 2017-0 Yes Univer s mg tablet 3-10 ity of 00:00: [place] [address] [facility] losartan 2017-0 Yes Univers 100 mg 3-10 ity of tablet 00:00: [place] [address] [facility] amLODIPine 2017-0 2- No Univer s 5 mg tablet 3-10 -24 ity of 00:00: 00:00 [place] 00 :00 Medical [facility] atenolol 50 2017-0 2- No Unive rs mg tablet 3-10 -24 ity of 00:00: 00:00 [place] 00 :00 Medical [facility] losartan 2017-0 2022- No Univers 100 mg 3-10 -24 ity of tablet 00:00: 00:00 [place] 00 :00 Medical [facility] Immunizations Ordered Immunization Filled Immunization Date Status Commen ts Source Name Name Mala COVIDJocy 2020-09-16 Completed Vaccine 00:00:00 [place] COVID-Jamie 2020-08-06 Completed Vaccine 00:00:00 Vital Signs Vital Name Observation Time Observation Value Comments Source Systolic blood 2021-11-21 12:00:00 130 mm[Hg] Univer sity of pressure [facility] Diastolic blood 2021-11-21 12:00:00 63 mm[Hg] Unive rsity of pressure [facility] Heart rate 2021-11-21 12:00:00 44 /min Universi ty of [facility] Body temperature 2021-11-21 12:00:00 36.61 Merna Univ ersity of [facility] Respiratory rate 2021-11-21 12:00:00 18 /min Univ ersity of [facility] Oxygen saturation in 2021-11-21 12:00:00 96 /min [facility] Arterial blood by [facility] Pulse oximetry Branch Body weight 2021-11-21 09:00:00 72.485 kg Universi ty of [place] [facility] BMI 2021-11-21 09:00:00 27.43 kg/m2 [facility] [place] [facility] Body height 2021-11-19 22:28:00 162.6 cm [facility]i [facility] of [place] [facility] Systolic blood 2020-09-13 16:09:00 130 mm[Hg] Univer sity of pressure [place] [facility] Diastolic blood 2020-09-13 16:09:00 71 mm[Hg] Unive rsity of pressure [facility] Heart rate 2020-09-13 16:06:00 51 /min [facility]i [facility] [place] [facility] Body weight 2020-09-13 16:06:00 79.379 kg [facility]i [facility] of [place] [facility] BMI 2020-09-13 16:06:00 30.04 kg/m2 [facility] [place] [facility] Systolic blood 2020-08-09 15:29:00 152 mm[Hg] Univer sity of pressure [facility] Diastolic blood 2020-08-09 15:29:00 84 mm[Hg] Unive rsity of pressure [facility] Body height 2020-08-09 15:24:00 162.6 cm Universi [facility] of [place] [facility] Body weight 2020-08-09 15:24:00 79.379 kg [facility]i [facility] [place] [facility] BMI 2020-08-09 15:24:00 30.04 kg/m2 [facility] [place] [facility] Systolic blood 2020-07-24 19:42:00 129 mm[Hg] Univer sity of pressure [place] [facility] Diastolic blood 2020-07-24 19:42:00 76 mm[Hg] Unive rsity of pressure [place] [facility] Body height 2020-07-24 19:40:00 162.6 cm [facility]i [facility] of [place] [facility] Body weight 2020-07-24 19:40:00 79.379 kg [facility]i [facility] [place] [facility] BMI 2020-07-24 19:40:00 30.04 kg/m2 Universi ty of [facility] Systolic blood 2020-07-11 19:40:00 144 mm[Hg] Univer sity of pressure [facility] Diastolic blood 2020-07-11 19:40:00 75 mm[Hg] Unive rsity of [facility] Heart rate 2020-07-11 19:40:00 63 /min Universi ty of [place] [facility] Body temperature 2020-07-11 19:40:00 36.56 Merna Univ ersity of [facility] Respiratory rate 2020-07-11 19:40:00 14 /min Univ ersity of [place] [facility] [place] Body weight 2020-07-11 19:40:00 79.379 kg [facility]i ty of [place] [facility] BMI 2020-07-11 19:40:00 30.04 kg/m2 [facility] [place] [facility] Oxygen saturation in 2020-07-11 19:40:00 99 /min University Arterial blood by [facility] Pulse oximetry Branch Systolic blood 2020-02-25 23:05:00 166 mm[Hg] Univer sity of pressure [facility] Diastolic blood 2020-02-25 23:05:00 90 mm[Hg] Unive rsity of pressure [facility] Heart rate 2020-02-25 23:05:00 60 /min Universi ty of [place] [facility] [place] Body temperature 2020-02-25 23:05:00 36.89 Merna Univ ersity of [facility] Respiratory rate 2020-02-25 23:05:00 18 /min Univ ersity of [place] [facility] [place] Body weight 2020-02-25 23:05:00 79.833 kg [facility]i [facility] [place] [facility] [place] BMI 2020-02-25 23:05:00 30.21 kg/m2 Universi ty of [facility] Oxygen saturation in 2020-02-25 23:05:00 97 /min University of Arterial blood by [facility] Pulse oximetry Branch Systolic blood 2020-02-25 00:41:58 149 mm[Hg] Univer sity of pressure [facility] Diastolic blood 2020-02-25 00:41:58 78 mm[Hg] Unive rsity of pressure [facility] Heart rate 2020-02-25 00:41:58 55 /min Universi ty of [facility] Respiratory rate 2020-02-25 00:41:58 20 /min Univ ersity of [facility] Oxygen saturation in 2020-02-25 00:41:58 98 /min University of Arterial blood by [facility] Pulse oximetry Branch Body temperature 2020-02-24 22:59:00 36.78 Merna Univ ersity of [facility] Body weight 2020-02-24 22:59:00 79.833 kg [facility] [place] [facility] BMI 2020-02-24 22:59:00 30.21 kg/m2 Universi ty of [facility] BP Systolic 2021-04-07 11:48:00 BP Diastolic 2021-04-07 11:48:00 Weight Measured 2021-04-07 11:48:00 173.40 pounds Height Measured 2021-04-07 11:48:00 64.00 inches Body Temperature 2021-04-07 11:48:00 97.20 degrees Heart Rate 2021-04-07 11:48:00 53.00 /min Respiratory Rate 2021-04-07 11:48:00 BP Systolic 2021-03-26 10:43:00 168 mm[Hg] BP Diastolic 2021-03-26 10:43:00 72 mm[Hg] Weight Measured 2021-03-26 10:43:00 174.00 pounds Height Measured 2021-03-26 10:43:00 64.00 inches Body Temperature 2021-03-26 10:43:00 97.30 degrees Heart Rate 2021-03-26 10:43:00 62.00 /min Respiratory Rate 2021-03-26 10:43:00 BP Systolic 2021-03-17 16:23:00 120 mm[Hg] BP Diastolic 2021-03-17 16:23:00 70 mm[Hg] Weight Measured 2021-03-17 16:23:00 177.40 pounds Height Measured 2021-03-17 16:23:00 64.00 inches Body Temperature 2021-03-17 16:23:00 97.30 degrees Heart Rate 2021-03-17 16:23:00 53.00 /min Respiratory Rate 2021-03-17 16:23:00 Height Measured 2020-11-27 10:22:00 64.00 inches Body Temperature 2020-11-27 10:22:00 98.10 degrees Heart Rate 2020-11-27 10:22:00 65.00 /min Respiratory Rate 2020-11-27 10:22:00 BP Systolic 2020-11-27 10:22:00 138 mm[Hg] BP Diastolic 2020-11-27 10:22:00 78 mm[Hg] Weight Measured 2020-11-27 10:22:00 170.00 pounds BP Systolic 2020-07-22 11:33:00 137 mm[Hg] BP Diastolic 2020-07-22 11:33:00 77 mm[Hg] Weight Measured 2020-07-22 11:33:00 172.80 pounds Height Measured 2020-07-22 11:33:00 64.00 inches Body Temperature 2020-07-22 11:33:00 98.30 degrees Heart Rate 2020-07-22 11:33:00 62.00 /min Respiratory Rate 2020-07-22 11:33:00 BP Systolic 2019-11-13 14:57:00 147 mm[Hg] BP Diastolic 2019-11-13 14:57:00 73 mm[Hg] Weight Measured 2019-11-13 14:57:00 182.00 pounds Height Measured 2019-11-13 14:57:00 64.00 inches Body Temperature 2019-11-13 14:57:00 98.40 degrees Heart Rate 2019-11-13 14:57:00 54.00 /min Respiratory Rate 2019-11-13 14:57:00 Procedures Procedure Date / Time Performing Clinician Source Performed MAGNESIUM 2021-11-21 09:42:00 Yelitza [facility] BASIC METABOLIC PANEL 2021-11-21 09:42:00 Yelitza [facility] (NA, K, CL, CO2, Medical Branch GLUCOSE, BUN, CREATININE, CA) CBC WITH DIFF 2021-11-21 09:42:00 Yelitza [facility] TRANSTHORACIC ECHO (TTE) 2021-11-20 13:55:00 Rui Torre [facility] MAGNESIUM 2021-11-20 11:15:00 Yelitza [facility] BASIC METABOLIC PANEL 2021-11-20 11:15:00 Yelitza [facility] (NA, K, CL, CO2, Medical Branch GLUCOSE, BUN, CREATININE, CA) LIPID PANEL 2021-11-20 11:15:00 Yelitza [facility] ([id number])(TOTAL Medical Branch CHOLESTEROL, TRIGLYCERIDES, HDL) CBC WITH DIFF 2021-11-20 11:14:00 Yelitza [facility] HB ECG ROUTINE & RHYTHM 2021-11-20 05:56:08 Je Guerrero [facility] TROPONIN I 2021-11-20 04:10:00 Yelitza [facility] POCT GLUCOSE (AUTOMATED) 2021-11-20 00:59:00 Yelitza [facility] POCT GLUCOSE (AUTOMATED) 2021-11-19 22:16:00 Yelitza [facility] TROPONIN I 2021-11-19 21:35:00 Yelitza [facility] URINE CULTURE 2021-11-19 18:23:00 Singer [facility] URINALYSIS 2021-11-19 18:22:00 Singer [facility] XR CHEST 1 VW 2021-11-19 17:28:28 Singer [facility] EKG-12 LEAD 2021-11-19 17:20:33 Yelitza [facility] COVID-19 (ID NOW RAPID 2021-11-19 17:20:00 Derek Michaels [facility] TESTING) Medical Branch LAB ONLY COVID 2021-11-19 17:20:00 Singer [facility] INTERPRETATION [facility] TROPONIN I 2021-11-19 17:13:00 Singer [facility] THYROID STIMULATING 2021-11-19 17:13:00 Rui Torre [facility] HORMONE Medical Branch COMP. METABOLIC PANEL 2021-11-19 17:13:00 Derek Michaels [facility] ([id number]) Medical Branch CBC WITH DIFF 2021-11-19 17:13:00 Singer [facility] GLYCOSYLATED HEMOGLOBIN 2021-11-19 17:13:00 Yelitza [facility] (A1C) [facility] [place] N-TERMINAL PRO-BNP 2021-11-19 17:13:00 Derek Michaels [facility] BLOOD CULTURE SCREEN 2021-11-19 17:10:00 Derek Michaels [facility] LACTIC ACID WHOLE BLOOD 2021-11-19 17:10:00 Singer [facility] BLOOD CULTURE SCREEN 2021-11-19 16:50:00 Derek Michaels [facility] EKG-12 LEAD 2021-11-19 16:39:48 Singer [facility] NOTICE OF PRIVACY 2021-11-19 16:28:43 Doctor Unassigned, No [facility] PRACTICES Name Medical Branch CONSENT/REFUSAL FOR 2021-11-19 16:28:06 Doctor Unassigned, No [facility] DIAGNOSIS AND TREATMENT Name Medical Branch INSURANCE CORRESPONDENCE 2021-03-19 05:01:00 Doctor Unassigned, No [facility] Name Medical Branch REFERRAL- 2020-11-27 05:01:00 Doctor Unassigned, No [facility] REQUEST/RESPONSE Name Medical Branch REFERRAL- 2020-09-05 05:01:00 Doctor Unassigned, No [facility] REQUEST/RESPONSE Name Medical Branch REFERRAL- 2020-08-16 05:01:00 Doctor Unassigned, No [facility] REQUEST/RESPONSE Name Medical Branch MR SHOULDER LEFT WO 2020-08-07 20:02:13 [facility] [place] [facility] REFERRAL- 2020-08-05 06:01:00 Doctor Unassigned, No [facility] [place] REQUEST/RESPONSE Name Medical Branch REFERRAL- 2020-07-22 06:01:00 Doctor Unassigned, No [facility] [place] REQUEST/RESPONSE Name Medical Branch CT HEAD WO CONTRAST 2020-07-11 20:46:33 Megan Hyde [facility] Branch XR HAND 3+ VW RIGHT 2020-07-11 20:38:25 Megan Hyde [facility] Medical Branch XR SHOULDER 2+ VW LEFT 2020-07-11 20:38:25 Megan Hyde [facility] NOTICE OF PRIVACY 2020-07-11 19:29:10 Doctor Unassigned, No [facility]ACT[facility] Name Medical Branch CONSENT/REFUSAL FOR 2020-07-11 19:28:14 Doctor Unassigned, No [facility] [place] [facility] Name Medical Branch REFERRAL- 2020-02-27 05:01:00 Doctor Unassigned, No [facility] [place] REQUEST/RESPONSE Name Medical Branch XR TIBIA FIBULA 2 VW 2020-02-26 00:12:17 Nu Harris [facility] Medical Branch XR KNEE 3 VW RIGHT 2020-02-25 23:34:14 Nu Harris [facility] CONSENT/REFUSAL FOR 2020-02-25 23:00:09 Doctor Unassigned, No [facility] [place] [facility] Name Medical Branch XR CHEST 1 VW 2020-02-25 00:07:06 Nu Harris [facility] XR CERVICAL SPINE 3 VW 2020-02-25 00:07:06 Nu Harris [facility] SH[facility] 2+ VW RIGHT 2020-02-25 00:07:06 [facility] FINGERS 2 VW RIGHT 2020-02-24 23:50:24 Nu [facility] HAND 3+ VW RIGHT 2020-02-24 23:50:24 Nu Harris [facility] CONSENT/REFUSAL FOR 2020-02-24 22:47:07 Doctor Unassigned, No Un [facility] DIAGNOSIS AND TREATMENT Name [facility] BI SCREENING 2019-11-30 18:23:01 Santy [facility] TOMOSYNTHESIS BILATERAL Rajyalaksi [facility] ASSIGNMENT OF BENEFITS 2019-11-30 17:52:13 Doctor Unassigned, No [facility] Name [facility] Plan of Care Planned Activity Planned Date Details Comments Source Goal Plan of Care Note [code = 64822-4] Goal Plan of Care Note [code = 66417-2] Goal Plan of Care Note [code = 67281-4] Goal Plan of Care Note [code = 71716-2] Goal Plan of Care Note [code = 14574-9] Goal Plan of Care Note [code = 01811-0] Goal Plan of Care Note [code = 49602-4] Goal Plan of Care Note [code = 35317-1] Goal Plan of Care Note [code = 01153-2] Goal Plan of Care Note [code = 28723-7] Goal Plan of Care Note [code = 80592-9] Encounters Start End Encounter Admission Attending Care Care Encounter Source Date/Time Date/Time Type Type Clinicians Facility Department ID 2021-03-29 Emergency [facility] [id number] [facility]-03-28 Emergency [facility] [id number] Univers [facility]:38[facility] 2021-03-28 Emergency [facility] [id number] Univers 19:36:20 [facility] 2022-03-27 2022-03-27 Outpatient R [facility] [id number] Univers 00:00[facility]00 [facility]00[facility]22-03-26 2022-03-26 Outpatient [id number] 00:00:00 00:00:00 Visit [id number]-[id number] -[id number] [id number] 2021-11-24 2021-11-24 Transition KAORL Cates 1.2.840.114 [id number] Univers 00:00:00 00:00:00 of Care Yazmin CARSON 350.1.13.10 [place] [phone] [facility] 403 Branch 2021-11-19 2021-11-[address] [facility] [id number] Univers 11:34:00 11:47:00 [facility] 2021-11-19 2021-11-21 Hospital Derek Michaels [facility] 1.2.840.1 [id number] Univers 11:34:00 11:47:00 Encounter Nurys Torrefelipa GUSMAN 350.1.13.10 ity of [place] GuerreroMAURILIO 4.2.7.2.686 [facility] [phone] [facility] 0[address] Branch 2021-03-19 2021-03-19 Orders Doctor FÉLIX 1.2.840.114 [id number] Univers 00:00:00 00:00:00 Only Unassigned, YAMILE 350.1.13.10 ity of [place] [facility] 4.2.7.2.686 Steffen as [phone] [facility] [address] 2020-11-27 2020-11-27 Orders Doctor FÉLIX 1.2.840.114 [id number] Univers 00:00:00 00:00:00 Only Unassigned, YAMILE 350.1.13.10 ity of [place] [facility] 4.2.7.2.686 Steffen as [phone] [facility] [address] 2020-09-13 2020-09-13 Outpatient R JOHNY [facility] [id number] Univers 11:00:00 11:00:00 TIN juanitorobert [facility] 2020-09-13 2020-09-13 Office Johny [facility] 1.2.840.114 [id number] Univers 10:42:47 10:57:47 Visit Tin [facility] 350.1.13.10 it y of Surgical 4.2.7.2.686 [place] as Specialti [phone] Az dical 198 [facility] 2020-09-09 2020-09-09 Outpatient Ashly MCCLAIN [facility] [id number] Univers 16:00:00 16:00:00 TIN staley [facility] 2020-09-05 2020-09-05 Orders Doctor FÉLIX 1.2.840.114 [id number] Univers 00:00:00 00:00:00 Only Unassigned, YAMILE 350.1.13.10 ity of [place] [facility] 4.2.7.2.686 Steffen as [phone] [facility] [address] 2020-08-16 2020-08-16 Orders Doctor FÉLIX 1.2.840.114 [id number] Univers 00:00:00 00:00:00 Only Unassigned, YAMILE 350.1.13.10 ity of [place] [facility] 4.2.7.2.686 Ste[place] as [phone] [address] 2020-08-09 2020-08-09 [facility] [id number] Univers 11:00:00 10:06:32 TIN [facility] 2020-08-09 2020-08-09 Office Johny [facility] 1.2.840.114 [id number] Univers 09:23:55 09:38:55 Visit [facility] 350.1.13.10 it y of Surgical 4.2.7.2.686 [place] as Specialti [phone] [facility] [address] [facility] 2020-08-07 2020-08-07 [facility] 1.2.840.114 [id number] Univers 12:56:00 23:59:00 Encounter Broderick Kike Gusman 350.1.13.10 [place] [phone] [facility] [address] 2020-08-07 2020-08-07 [facility] [id number] Univers 12:56:00 23:59:00 BRODERICK rebeka [facility] 2020-08-05 2020-08-05 Orders Doctor HEARD 1.2.840.114 [id number] Univers 00:00:00 00:00:00 Only Unassigned, YAMILE 350.1.13.10 ity of [place] [facility] 4.2.7.2.686 Steffen as [phone] [address] 2020-07-25 2020-07-25 [facility] 1.2.840.114 [id number] Univers 00:00:00 00:00:00 Broderick [facility] 350.1.13.10 it y of Surgical 4.2.7.2.686 [place] as Specialti [phone] Az dical es 198 [facility] 2020-07-24 2020-07-24 Office Johny [facility] 1.2.840.114 [id number] Univers 13:34:33 14:04:49 Visit Tin [facility] 350.1.13.10 it y of Surgical 4.2.7.2.686 [place] as Specialti [phone] Az dicmt es 198 [facility] 2020-07-24 2020-07-24 [facility] [id number] Univers 13:30:00 14:04:49 TIN robert [facility] 2020-07-22 2020-07-22 [facility]patient [facility] [id number] Univers 14:00:00 14:00:00 [facility] 2020-07-22 2020-07-22 Orders Doctor FÉLIX 1.2.840.114 [id number] Univers 00:00:00 00:00:00 Only Unassigned, YAMILE 350.1.13.10 ity of [place] [facility] 4.2.7.2.686 [place] [phone] [address] 2020-07-18 2020-07-18 Outpatient R CHRIS [facility] [id number] Univers 11:00:00 11:00:00 [facility] [place] [facility] 2020-07-15 2020-07-15 Outpatient R CHRIS [facility] [id number] Univers 14:45:00 14:45:00 [facility] 2020-07-11 2020-07-11 [facility] 1.2.088.786 [id number] Univers 13:43:00 15:51:00 Megan Gusman 350.1.13.10 [place] [place] [facility] [phone] [address] 2020-07-11 2020-07-11 Orders Doctor FÉLIX 1.2.840.114 [id number] Univers 00:00:00 00:00:00 Only Unassigned, YAMILE 350.1.13.10 ity of [place] [facility] 4.2.7.2.686 [place] as [phone] [address] 2020-03-05 2020-03-05 Outpatient R JOHNY, [facility] [id number] Univers 14:00:00 14:00:00 TIN ity [facility] 2020-02-27 2020-02-27 Orders Doctor FÉLIX 1.2.840.114 [id number] Univers 00:00:00 00:00:00 Only Unassigned, YAMILE 350.1.13.10 ity of [place] [facility] 4.2.7.2.686 Steffen as [phone] [address] 2020-02-25 2020-02-25 [facility] 1.2.377.143 [id number] Univers 18:08:00 19:49:00 Nu Gusman 350.1.13.10 ity of [place] 4.2.7.2.[address] [facility] [phone] [address] 2020-02-24 2020-02-24 [facility] 1.2.850.609 [id number] Univers 18:01:00 20:12:00 Nu Gusman 350.1.13.10 ity of [place] 4.2.7.2.[address] [facility] [phone] [address] 2020-02-24 2020-02-24 Orders Doctor HEARD 1.2.840.114 [id number] Univers 00:00:00 00:00:00 Only Unassigned, YAMILE 350.1.13.10 ity of [place] [facility] 4.2.7.2.686 Steffen as [phone] [address] 2019-11-30 2019-11-30 Hospital [facility], [facility] 1.2.176.433 [id number] Univers 12:54:00 23:59:00 Encounter Oliverio Gusman 350.1.13.10 ity of [place] 4.2.7.2.[address] [facility] [phone] [facility] [address] 2019-11-30 2019-11-30 Outpatient R UNKNOWN, [facility] [id number] Univers 00:00:00 00:00:00 ATTENDING ity of [facility] 2019-11-30 2019-11-30 Orders Doctor FÉLIX 1.2.840.114 [id number] Univers 00:00:00 00:00:00 Only Unassigned, YAMILE 350.1.13.10 ity of [place] [facility] 4.2.7.2.686 [facility] [phone] [facility] [address] Branch Results Test Description Test Time Test Comments Results Result Comments Source BASIC METABOLIC PANEL (NA, K, CL, CO2, GLUCOSE, BUN, 2021-10 12:51:28 CREATININE, CA) Test Item Value Reference Range Interpretation Comme nts NA (test code = 4651825792) 140 mmol/L 135-145 K (test code = 6976369715) 3.8 mmol/L 3.5-5.0 CL (test code = 2554324035) 105 mmol/L 98-108 CO2 TOTAL (test code = 8743765209) 28 mmol/L 23-31 AGAP (test code = 3597105640) 2-16 BUN (test code = 5692485656) 15 mg/dL 7-23 GLUCOSE (test code = 9774525145) 89 mg/dL 70-110 CREATININE (test code = 1.01 mg/dL 0.50-1.04 7518112053) CALCIUM (test code = 0504840349) 8.3 mg/dL 8.6-10.6 L eGFR (test code = 9552872040) mL/min/1.73m2 TITUS (test code = TITUS) Association of Glomerular Filtration Rate (GFR) and Staging of Kidney Disease* + +-------- + ------+| GFR (mL/min/1.73 m2) ?| With Kidney Damage ?| ?Without Kidney Damage+ +-- + +| ?>90 ?| ?Stage one ?| ? Normal ?+ +------- + -------+| ?60-89 ?| ?Stage two ?| ? Decreased GFR ? + +-------- + ------+| ?30-59 ?| ?Stage three ?| ? Stage three ? + +-------- + ------+| ?15-29 ?| ?Stage four ? | ? Stage four ?+ +------- + -------+| ?<15 (or dialysis) ? ?| ?Stage five ? | ? Stage five ?+ +------- + -------+ *Each stage assumes the associated GFR level has been in effect for at least three months. ?Stages 1 to 5, with or without kidney disease, indicate chronic kidney disease. Notes: Determination of stages one and two (with eGFR >59mL/min/1.73 m2) requires estimation of kidney damage for at least three months as defined by structural or functional abnormalities of the kidney, manifested by either:Pathological abnormalities or Markers of kidney damage (including abnormalities in the composition of the blood or urine or abnormalities in imaging tests). Lab Interpretation (test code = Abnormal 75873-3) [facility]2022-[facility]-24 12:02:28 Test Item Value Reference Range Interpretation Comments MAGNESIUM (test code = 3016966907) 1.8 mg/dL 1.7-2.4 Lab Interpretation (test code = Normal 41570-6) [facility] WITH [id number] 11:20:25 Test Item Value Reference Range Interpretation Comments WBC (test code = See_Comment L [Automated 6690-2) message] The sy stem which generated this result transmitted reference range : 4.30 - 11.10 10*3/?L. The reference range was not used to interpret this result as normal/abnormal . RBC (test code = See_Comment L [Automated 619-8) message] The sy stem which generated this result transmitted reference range : 3.93 - 5.25 10*6/?L. The reference range was not used to interpret this result as normal/abnormal . HGB (test code = 10.4 g/dL 11.6-15.0 L 718-7) HCT (test code = 29.8 % 35.7-45.2 L 4544-3) MCV (test code = 90.9 fL 80.6-95.5 787-2) MCH (test code = 31.7 pg 25.9-32.8 785-6) MCHC (test code = 34.9 g/dL 31.6-35.1 786-4) RDW-SD (test code = 37.7 fL 39.0-49.9 L 68770-0) RDW-CV (test code = 11.3 % 12.0-15.5 L 788-0) PLT (test code = See_Comment [Automated 777-3) message] The sy stem which generated this result transmitted reference range : 166 - 358 10*3/ ?L. The reference r coral was not used to interpret this result as normal/abnormal . MPV (test code = 10.3 fL 9.5-12.9 25665-5) NRBC/100 WBC (test See_Comment [Automat ed code = 2592299235) message] The system which generated this result transmitted reference range : 0.0 - 10.0 /100 WBCs. The refer ence range was not u sed to interpret th is result as normal/abnormal . NRBC x10^3 (test code <0.01 See_Comment [Auto mated = 6188098639) message] The s ystem which generated this result transmitted reference range : 10*3/?L. The reference range was not used to interpret this result as normal/abnormal . GRAN MAT (NEUT) % 18.0 % (test code = 770-8) IMM GRAN % (test code 0.00 % = 9291244234) LYMPH % (test code = 59.5 % 736-9) MONO % (test code = 10.5 % 5905-5) EOS % (test code = 11.0 % 713-8) BASO % (test code = 1.0 % 706-2) GRAN MAT x10^3(ANC) 0.38 10*3/uL 1.88-7.09 L (test code = 6133911848) IMM GRAN x10^3 (test <0.03 0.00-0.06 code = 1136251561) LYMPH x10^3 (test code 1.25 10*3/uL 1.32-3.29 L = 731-0) MONO x10^3 (test code 0.22 10*3/uL 0.33-0.92 L = 742-7) EOS x10^3 (test code = 0.23 10*3/uL 0.03-0.39 711-2) BASO x10^3 (test code <0.03 0.01-0.07 = 704-7) REACT LYMPHS (test Rare code = 8698159705) Lab Interpretation Abnormal (test code = 30700-0) [facility] (TTE)2021-11-20 22:26:02 Test Item Value Reference Range Interpretation Comments Height (test code = in 5253000799) Weight (test code = lbs 6935740527) Systolic BP (test code = mmHg 0827176268) Diastolic BP (test code mmHg = 0449753664) Heart Rate (test code = bpm 0830901345) BSA (test code = 1.83 m2 2599095294) LVIDD (test code = 4.70 cm 8980587861) IVS (test code = 1.00 cm 8041310912) Interventricular Septum 1.00 cm Diastolic Thickness by 2D (test code = 7755090) LVPWD (test code = 1.00 cm 1455809443) PW (test code = 1.00 cm 0.6-1.4 0709295979) EF(Teich) (test code = 65.80 % 6851478649) LVIDS (test code = 3.00 cm 9700909861) FS (test code = 36 % 6846677840) EF - 2D (test code = 65.80 % 75235285) LVOT diameter (test code 2.15 cm = 6702809706) ACS (test code = 1.99 cm 7007338742) Ao root annulus (test 2.9 cm code = 1011003085) Ao root diam (test code 2.90 cm = 1986969512) Aortic root (test code = 2.9 cm 0460594939) LA size (test code = 4.1 cm 7625853413) TR Peak Paxton (test code = 277.6 cm/s 9063515473) Triscuspid Valve mmHg Regurgitation Peak Gradient (test code = 9007022703) E wave decelartion time 0.26 s (test code = 3394466312) MV Peak E Paxton (test code 88.7 cm/s = 5925790331) MV Peak A Paxton (test code 53.6 cm/s = 2182677695) E/A ratio (test code = ratio 3618494999) MV Prop V (test code = 32.50 cm/s 4788663969) Tapse (test code = 2.7 cm 5916851760) LVOT stroke volume (test 91.00 cm3 code = 2970926966) LVOT peak paxton (test code 102.8 cm/s = 1830351160) LVOT mn grad (test code mmHg = 6223871352) AV LVOT peak gradient mmHg (test code = 8168780554) LVOT peak VTI (test code 25.0 cm = 9539338504) LV V1 mean (test code = 55.80 cm/s 6089996607) Aortic valve mean 89.1 cm/s velocity (test code = 1783985913) Ao peak paxton (test code = 153.4 cm/s 2967700494) Ao VTI (test code = 38.9 cm 9935371813) AV area by cont VTI 2.3 cm2 (test code = 3560248874) AV area peak paxton (test 2.4 cm2 code = 2177159896) Ao max PG (test code = 9.40 mm[Hg] 1001406982) AV peak gradient (test mmHg code = 4059545831) AV valve area (test code 2.34 cm2 = 1904449290) AV mean gradient (test mmHg code = 4957828682) Radiology Study observation (narrative) (test code = 12655-1) TITUS (test code = TITUS) ?Left?Ventricle: Left ventricle size is normal. Mildly increased wall thickness. Normal wall motion. ?Pulmonic?Valve: Pulmonic valve is normal in structure and function. ?Mitral?Valve: Mitral valve structure is normal. Mildly thickened leaflets. Mildly calcified leaflets. ?Tricuspid?Valve: Tricuspid valve structure is normal. Mild transvalvular regurgitation. Right ventricular systolic pressure is 30-35 mmHg. ?RA pressure is 0-5 mmHg. [facility] with Stphachdlcug5912-93-59 12:51:34 Test Item Value Reference Range Interpretation Comments WBC (test code = See_Comment LL [Automated 4183-2) message] The sy stem which generated this result transmitted reference range : 4.30 - 11.10 10*3/?L. The reference range was not used to interpret this result as normal/abnormal . RBC (test code = See_Comment L [Automated 789-8) message] The sy stem which generated this result transmitted reference range : 3.93 - 5.25 10*6/?L. The reference range was not used to interpret this result as normal/abnormal . HGB (test code = 10.2 g/dL 11.6-15.0 L 718-7) HCT (test code = 29.2 % 35.7-45.2 L 4544-3) MCV (test code = 91.3 fL 80.6-95.5 787-2) MCH (test code = 31.9 pg 25.9-32.8 785-6) MCHC (test code = 34.9 g/dL 31.6-35.1 786-4) RDW-SD (test code = 38.5 fL 39.0-49.9 L 39859-8) RDW-CV (test code = 11.4 % 12.0-15.5 L 788-0) PLT (test code = See_Comment [Automated 777-3) message] The sy stem which generated this result transmitted reference range : 166 - 358 10*3/ ?L. The reference r coral was not used to interpret this result as normal/abnormal . MPV (test code = 10.3 fL 9.5-12.9 24921-3) NRBC/100 WBC (test See_Comment [Automat ed code = 3244966186) message] The system which generated this result transmitted reference range : 0.0 - 10.0 /100 WBCs. The refer ence range was not u sed to interpret th is result as normal/abnormal . NRBC x10^3 (test code <0.01 See_Comment [Auto mated = 6877082789) message] The s ystem which generated this result transmitted reference range : 10*3/?L. The reference range was not used to interpret this result as normal/abnormal . GRAN MAT (NEUT) % 20.6 % (test code = 770-8) IMM GRAN % (test code 0.00 % = 9075954397) LYMPH % (test code = 65.3 % 736-9) MONO % (test code = 11.1 % 5905-5) EOS % (test code = 2.5 % 713-8) BASO % (test code = 0.5 % 706-2) GRAN MAT x10^3(ANC) 0.41 10*3/uL 1.88-7.09 L (test code = 8417233672) IMM GRAN x10^3 (test <0.03 0.00-0.06 code = 3772078081) LYMPH x10^3 (test code 1.30 10*3/uL 1.32-3.29 L = 731-0) MONO x10^3 (test code 0.22 10*3/uL 0.33-0.92 L = 742-7) EOS x10^3 (test code = 0.05 10*3/uL 0.03-0.39 711-2) BASO x10^3 (test code <0.03 0.01-0.07 = 704-7) BANDS (test code = Increased A 6946473301) GIANT PLATELETS (test Present See_Comment A [Auto mated code = 5908-9) message] The system which generated this result transmitted reference range : (none). The reference range was not used to interpret this result as normal/abnormal . Lab Interpretation Abnormal (test code = 13771-2) [facility] Lmwym1693-39-17 11:45:11 Test Item Value Reference Range Interpretation Comments MAGNESIUM (test code = 6702731528) 1.9 mg/dL 1.7-2.4 Lab Interpretation (test code = Normal 28660-1) [facility] Campus[facility]id Panel (Total Cholesterol, Triglycerides, HDL)2021-11-20 11:45:11 Test Item Value Reference Range Interpretation Comments CHOL (test code = 114 mg/dL 120-200 L 8460409408) HDL (test code = 34 mg/dL >50 L 6712817444) HDLC RATIO (test code = See_Comment [Au tomated message] 9403048023) The system [employer] generated this result transmit elicia reference range : <=4.5. The refe rence range was not u sed to interpret th is result as normal/abnormal . TRIG (test code = 74 mg/dL 30-170 0283502641) LDL CHOL (test code = 65 mg/dL See_Comment [Auto mated message] 42905-7) The system [employer] generated this result transmit elicia reference range : <=160. The refe rence range was not u sed to interpret th is result as normal/abnormal . VLDL (test code = 15 mg/dL 5-60 6983987932) Lab Interpretation (test Abnormal code = 67410-9) [facility] Metabolic Panel (NA, K, CL, CO2, GLUCOSE, BUN, CREATININE, CA)2021-11-20 11:44:51 Test Item Value Reference Range Interpretation Comments NA (test code = 137 mmol/L 135-145 0758456388) K (test code = 3.1 mmol/L 3.5-5.0 L 2224385796) CL (test code = 102 mmol/L 98-108 7034661741) CO2 TOTAL (test code = 29 mmol/L 23-31 9145989649) AGAP (test code = 2-16 1664099252) BUN (test code = 15 mg/dL 7-23 2018674458) GLUCOSE (test code = 89 mg/dL 70-110 0914660433) CREATININE (test code = 1.19 mg/dL 0.50-1.04 H 5263410918) CALCIUM (test code = 8.4 mg/dL 8.6-10.6 L 6484825635) eGFR (test code = mL/min/1.73m2 2261851776) TITUS (test code = TITUS) Association of Glomerular Filtration Rate (GFR) and Staging of Kidney Disease* + --+ --+ ------+| GFR (mL/min/1.73 m2) ?| With Kidney Damage ?| ?Without Kidney Damage+ --------+ --------+ +| ?>90 ?| ?Stage one ?| ? Normal ?+ ---+ ---+ -------+| ?60-89 ?| ?Stage two ?| ? Decreased GFR ? + --+ --+ ------+| ?30-59 ?| ?Stage three ?| ? Stage three ? + --+ --+ ------+| ?15-29 ?| ?Stage four ? | ? Stage four ?+ ---+ ---+ -------+| ?<15 (or dialysis) ? ?| ?Stage five ? | ? Stage five ?+ ---+ ---+ -------+ *Each stage assumes the associated GFR level has been in effect for at least three months. ?Stages 1 to 5, with or without kidney disease, indicate chronic kidney disease. Notes: Determination of stages one and two (with eGFR >59mL/min/1.73 m2) requires estimation of kidney damage for at least three months as defined by structural or functional abnormalities of the kidney, manifested by either:Pathological abnormalities or Markers of kidney damage (including abnormalities in the composition of the blood or urine or abnormalities in imaging tests). Lab Interpretation Abnormal (test code = 73967-1) [facility] CampusTroponin [id number] 06:04:27 Test Item Value Reference Interpretation Comments Range TROPONIN I (test 0.022 ng/mL See_Comment [Automated code = 9465688791) message] The system which generated this result transmitted reference range : <=0.034. The reference range was not used to interpret this result as normal/abnormal . TITUS (test code = Reference (Normal) TITUS) Range (defined by the 99th percentile reference limit): <= 0.034 ng/mL Note: Cardiac troponin begins to rise 3-4 hours after the onset of ischemia. Repeat in 4-6 hours if the sample was drawn within 3-4 hours of the onset of the symptom and found normal. Diagnosis of myocardial injury is made with acute changes in cTn concentrations with at least one serial sample above the 99th percentile upper reference limit (URL), taken together with the patient's clinical presentation. Biotin has been reported to cause a negative bias, interpret results relative to patient's use of biotin. Lab Interpretation Normal (test code = 35446-5) [facility]2021-11-20 01:16:39 Test Item Value Reference Range Interpretation Comments POCT GLU (test code = 8966860395) 92 mg/dL 70-110 Lab Interpretation (test code = Normal 94114-8) [facility] CampusThyroid Stimulating Hormone (TSH)2021-11-19 22:33:30 Test Item Value Reference Range Interpretation Comments TSH (test code = See_Comment Biotin has been [id number]) reported to cau se a negative bias, interpret resul ts relative to pat ient's use of biotin. [Automated mess age] The system [employer] generated this result transmitted ref erence range: 0.45 - 4 .70 mIU/L. The refe rence range was not u sed to interpret this result as normal/abnor mal. Lab Interpretation (test Normal code = 72164-1) [facility] CampusGlycosylated Hemoglobin (A1C)2021-11-19 22:29:36 Test Item Value Reference Range Interpretation Comments HGB A1C (test code = 4.7 % 4.0-5.7 4548-4) TITUS (test code = TITUS) Reference RangesNormal: <5.7%Prediabetes: 5.7 - 6.4%Diabetes: > 6.5% Lab Interpretation (test Normal code = 71464-4) [facility] [id number] 22:29:06 Test Item Value Reference Interpretation Comments Range TROPONIN I (test 0.014 ng/mL See_Comment [Automated code = 1052959529) message] The system which generated this result transmitted reference range : <=0.034. The reference range was not used to interpret this result as normal/abnormal . TITUS (test code = Reference (Normal) TITUS) Range (defined by the 99th percentile reference limit): <= 0.034 ng/mL Note: Cardiac troponin begins to rise 3-4 hours after the onset of ischemia. Repeat in 4-6 hours if the sample was drawn within 3-4 hours of the onset of the symptom and found normal. Diagnosis of myocardial injury is made with acute changes in cTn concentrations with at least one serial sample above the 99th percentile upper reference limit (URL), taken together with the patient's clinical presentation. Biotin has been reported to cause a negative bias, interpret results relative to patient's use of biotin. Lab Interpretation Normal (test code = 74812-9) [facility]2021-11-19 22:19:17 Test Item Value Reference Range Interpretation Comments POCT GLU (test code = 8687378666) 84 mg/dL 70-110 Lab Interpretation (test code = Normal 89774-0) [facility] [id number] 19:03:06 Test Item Value Reference Interpretation Comments Range TROPONIN I (test 0.020 ng/mL See_Comment [Automated code = 8181939771) message] The system which generated this result transmitted reference range : <=0.034. The reference range was not used to interpret this result as normal/abnormal . TITUS (test code = Reference (Normal) TITUS) Range (defined by the 99th percentile reference limit): <= 0.034 ng/mL Note: Cardiac troponin begins to rise 3-4 hours after the onset of ischemia. Repeat in 4-6 hours if the sample was drawn within 3-4 hours of the onset of the symptom and found normal. Diagnosis of myocardial injury is made with acute changes in cTn concentrations with at least one serial sample above the 99th percentile upper reference limit (URL), taken together with the patient's clinical presentation. Biotin has been reported to cause a negative bias, interpret results relative to patient's use of biotin. Lab Interpretation Normal (test code = 05974-4) [facility] CampusN-TERMINAL [id number] 18:59:43 Test Item Value Reference Range Interpretation Comments NT-proBNP (test code 677 pg/mL See_Comment H [Autom ated = 9992716428) message] The system which generated this result transmitted reference range : <=125. The reference range was not used to interpret this result as normal/abnormal . TITUS (test code = TITUS) Biotin has been reported to cause a negative bias, interpret results relative to patient's use of biotin. Lab Interpretation Abnormal (test code = 36879-3) [facility] WITH [id number] 18:09:38 Test Item Value Reference Range Interpretation Comments WBC (test code = See_Comment L [Automated 1590-2) message] The sy stem which generated this result transmitted reference range : 4.30 - 11.10 10*3/?L. The reference range was not used to interpret this result as normal/abnormal . RBC (test code = See_Comment L [Automated 309-8) message] The sy stem which generated this result transmitted reference range : 3.93 - 5.25 10*6/?L. The reference range was not used to interpret this result as normal/abnormal . HGB (test code = 11.3 g/dL 11.6-15.0 L 718-7) HCT (test code = 31.7 % 35.7-45.2 L 4544-3) MCV (test code = 89.5 fL 80.6-95.5 787-2) MCH (test code = 31.9 pg 25.9-32.8 785-6)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
[2022-04-17] MEDS ORDERED: TRAMADOL 37.5mg/APAP 325mg PER TAB ONE (11:37)
--- NOTE | 2022-04-17 13:40 | RAD REPORT ---
EXAM DESCRIPTION: RAD - Shoulder Right 2 View - 04/17/2022 1:17 pm CLINICAL HISTORY: fall COMPARISON: Shoulder Right 2 View dated 11/26/2016 FINDINGS/IMPRESSION: No right shoulder fracture or dislocation. Mild high riding humeral head. Mild right AC and glenohumeral joint degenerative changes.
--- NOTE | 2022-04-17 13:41 | RAD REPORT ---
EXAM DESCRIPTION: RAD - Foot Right 3 View - 04/17/2022 1:17 pm CLINICAL HISTORY: fall, foot pain COMPARISON: No comparisons FINDINGS/IMPRESSION: No acute fracture. No malalignment. Calcaneal spurring. Midfoot degenerative ch anges. Cortical thickening at the second and third metatarsal that may be related to vascular insuffi ciency.
--- NOTE | 2022-04-17 14:38 | EDPHYS ---
Physician Documentation [facility] Name: Whitley Jean Age: 66 yrs Sex: Female : 1955 Arrival Date: 04/17/2022 Time: 10:17 Bed 10 Private MD: Albina Madera R ED Physician Steve Martinez HPI: 04/17 11:02 This 66 yrs old Black Female presents to ER via Ambulatory with complaints of Shoulder jmm Pain, Foot Pain. 11:02 The patient or guardian complains of an injury, pain. Onset: The symptoms/episode jmm began/occurred acutely, 2 day(s) ago. Modifying factors: the symptoms are alleviated by nothing. The symptoms are aggravated by movement. This is a 66-year-old female with history of diabetes mellitus, hypertension, hyperlipidemia the presents emerged department with complaints of right shoulder pain which occurred after she fell against a sink 2 days ago. Denies hitting her head. Patient also complains of ongoing pain to her right foot after a 2 L Coke bottle fell on her multiple weeks ago.. Historical: - Allergies: 10:59 No Known Allergies; vg1 - PMHx: 10:59 Diabetes - NIDDM; Hypertension; Hypercholesterolemia; vg1 - Immunization history:: Client reports receiving the 2nd dose of the Covid vaccine. - Social history:: Smoking status: Patient denies any tobacco usage or history of. ROS: 11:02 Constitutional: Negative for fever, chills, and weight loss, Cardiovascular: Negative jmm for chest pain, palpitations, and edema, Respiratory: Negative for shortness of breath, cough, wheezing, and pleuritic chest pain. 11:02 MS/extremity: Positive for pain. 11:02 All other systems are negative. Exam: 11:02 Constitutional: This is a well developed, well nourished patient who is awake, alert, jmm and in no acute distress. Head/Face: atraumatic. Eyes: EOMI, no conjunctival erythema appreciated ENT: Moist Mucus Membranes Neck: Trachea midline, Supple Chest/axilla: Normal chest wall appearance and motion. Cardiovascular: Regular rate and rhythm. No edema appreciated Respiratory: Normal respirations, no respiratory distress appreciated Abdomen/GI: Non distended Back: Normal ROM Skin: General appearance color normal 11:02 Musculoskeletal/extremity: Right anterior shoulder tender to palpation, full pan operator strength appreciated, pain elicited on abduction, compartments are soft, full radial pulse, neurovascular intact. 11:02 Skin: Appearance: Color: normal in color. 11:02 Neuro: Motor: is normal. 11:02 Psych: Behavior/mood is pleasant, cooperative. Vital Signs: 10:56 BP 189 / 74; Pulse 55; Resp 16; Temp 98.1; Pulse Ox 99% on R/A; Weight 68.95 kg; Height vg1 5 ft. 4 in. (162.56 cm); Pain 6/10; 10:56 Body Mass Index 26.09 (68.95 kg, 162.56 cm) vg1 10:56 did not take BP meds this morning vg1 MDM: 11:02 Patient medically screened. [facility] 14:37 Data reviewed: vital signs, nurses notes. Counseling: I had a detailed discussion with cruz the patient and/or guardian regarding: the historical points, exam findings, and any diagnostic results supporting the discharge/admit diagnosis, radiology results, the need for outpatient follow up, to return to the emergency department if symptoms worsen or persist or if there are any questions or concerns that arise at home. 04/17 11:26 Order name: Shoulder Right (2 View) XRAY; Complete Time: 13:52 [facility] 04/17 11:26 Order name: Foot Right 3 View XRAY; Complete Time: 13:52 [facility] 04/17 14:19 Order name: Sling; Complete Time: 14:34 [facility] Administered Medications: 12:07 Drug: Ultracet (tramadol-acetaminophen) 1 tabs Route: PO; ap3 14:26 Follow up: Response: No adverse reaction; Pain is decreased ap3 Disposition Summary: 04/17/22 14:37 Discharge Ordered Location: Home [facility] Condition: Stable [facility] Diagnosis - Strain of muscle(s) and tendon(s) of the rotator cuff of right shoulder [facility] Followup: [facility] - With: Abdirahman Davila MD - When: 2 - 3 days - Reason: Recheck today's complaints, Continuance of care, Re-evaluation by your physician Discharge Instructions: - Discharge Summary Sheet [facility] - Shoulder Sprain [facility] Forms: - Medication Reconciliation Form [facility] - Thank You Letter [facility] - Antibiotic Education [facility] - Prescription Opioid Use jmm Prescriptions: - orphenadrine citrate 100 mg Oral Tablet Sustained Release - take 1 tablet by ORAL route 2 times per day As needed; 20 tablet; Refills: 0, cruz Product Selection Permitted Addendum: 04/19/2022 13:33 Co-signature as Attending Physician, Steve Martinez MD I agree with the assessment and c stanley plan of care. Signatures: Dispatcher [employer] EDSteve Alexander MD MD cha Mickail, Joel, PA PA jmm Prokisch, Amanda RN RN ap3 Savana Cooper RN RN vg1
--- NOTE | 2022-04-17 14:38 | ER ---
Nurse's Notes [facility] Name: Whitley Jean Age: 66 yrs Sex: Female : 1955 Arrival Date: 04/17/2022 Time: 10:17 Bed 10 Private MD: Albina Madera R Diagnosis: Strain of muscle(s) and tendon(s) of the rotator cuff of right shoulder Presentation: 04/17 10:56 Chief complaint: Patient states: Tripped and hit Right shoulder on kitchen sink; denies vg1 hitting head or LOC. Incident was on 04/15/22. Coronavirus screen: Vaccine status: Patient reports receiving the 2nd dose of the covid vaccine. Client denies travel out of the [place] in the last 14 days. Ebola Screen: Patient negative for fever greater than or equal to 101.5 degrees Fahrenheit, and additional compatible Ebola Virus Disease symptoms. Initial Sepsis Screen: Does the patient meet any 2 criteria? No. Patient's initial sepsis screen is negative. Does the patient have a suspected source of infection? No. Patient's initial sepsis screen is negative. Risk Assessment: Do you want to hurt yourself or someone else? Patient reports no desire to harm self or others. Onset of symptoms was April 15, 2022. 10:56 Method Of Arrival: Ambulatory vg1 10:56 Acuity: LÁZARO 4 vg1 Triage Assessment: 10:59 General: Appears in no apparent distress. comfortable, Behavior is calm, cooperative. vg1 Pain: Complains of pain in Right shoulder. Musculoskeletal: Range of motion: limited in right shoulder. Historical: - Allergies: 10:59 No Known Allergies; vg1 - PMHx: 10:59 Diabetes - NIDDM; Hypertension; Hypercholesterolemia; vg1 - Immunization history:: Client reports receiving the 2nd dose of the Covid vaccine. - Social history:: Smoking status: Patient denies any tobacco usage or history of. Screenin:40 Abuse screen: Denies threats or abuse. Nutritional screening: No deficits noted. ap3 Tuberculosis screening: No symptoms or risk factors identified. Fall Risk None identified. Assessment: 14:34 Reassessment: Patient and/or family updated on plan of care and expected duration. Pain ap3 level reassessed. Patient is alert, oriented x 3, equal unlabored respirations, skin warm/dry/pink. Vital Signs: 10:56 BP 189 / 74; Pulse 55; Resp 16; Temp 98.1; Pulse Ox 99% on R/A; Weight 68.95 kg; Height vg1 5 ft. 4 in. (162.56 cm); Pain 6/10; 10:56 Body Mass Index 26.09 (68.95 kg, 162.56 cm) vg1 10:56 did not take BP meds this morning vg1 ED Course: 10:17 Patient arrived in ED. as 10:17 Albina Madera MD is Private Physician. as 10:59 Triage completed. vg1 10:59 Arm band placed on. vg1 11:01 Elmer Gold PA is PHCP. [facility] 11:01 Steve Martinez MD is Attending Physician. [facility] 11:29 Brittany Stover, STEVE is Primary Nurse. ap3 13:19 Shoulder Right (2 View) XRAY In Process Unspecified. EDMS 13:19 Foot Right 3 View XRAY In Process Unspecified. EDMS 13:40 Patient has correct armband on for positive identification. Placed in gown. Bed in low ap3 position. Call light in reach. Side rails up X 1. Door closed. Noise minimized. 14:37 Abdirahman Davila MD is Referral Physician. [facility] 14:53 No provider procedures requiring assistance completed. Patient did not have IV access ap3 during this emergency room visit. Administered Medications: 12:07 Drug: Ultracet (tramadol-acetaminophen) 1 tabs Route: PO; ap3 14:26 Follow up: Response: No adverse reaction; Pain is decreased ap3 Medication: 14:35 VIS not applicable for this client. ap3 Outcome: 14:37 Discharge ordered by . jmm 14:53 Discharged to home ambulatory. ap3 14:53 Condition: good 14:53 Discharge instructions given to patient, Instructed on discharge instructions, follow up and referral plans. sling education Demonstrated understanding of instructions, follow-up care, sling education 14:54 Patient left the ED. ap3 Signatures: Dispatcher [employer] EDMS Elmer Gold PA PA Yasmin Aguiar as Brittany Stover RN RN ap3 Kenneth, Savana, RN RN vg1
[2022-04-17 15:10] VITALS: TEMP 99.1; O2SAT 100
[2022-04-17 15:13] VITALS: BP 189/74
== END 2022-04-17 14:54 | disposition home or self-care (01) ==
LOC: ER 10:14
DX: S46.011A Strain of muscle(s) and tendon(s) of the rotator cuff of right shoulder, initial encounter (principal); I10 Essential (primary) hypertension
CPT/HCPCS: 99283